=== PATIENT | female | born 1950 | race Two or more races ===

== ENCOUNTER 2018-06-08 06:25 | Day surgery (SDC) | payer MEDICARE, MEDICAID ==
--- NOTE | 2018-06-02 15:52 | Pre-Procedure Note/Attestation ---
Pre-Procedure Note/Attestation Complete Prior to Procedure Planned Procedure: right Procedure Narrative: PHACO WITH iol Indications for Procedure Pre-Operative Diagnosis: CATARACT Attestation I attest that I discussed the nature of the procedure; its benefits; risks and complications; and alternatives (and the risks and benefits of such alternatives ), prior to the procedure, with the patient (or the patient's legal fulfillment representative). I attest that, if there was a reasonable possibility of needing a blood transfusion, the patient (or the patient's legal fulfillment representative) was given the [facility] standardized written summary, pursuant to the Gaudencio Streator Blood Safety Act ([place] Health and Safety Code # 1645, as amended). I attest that I re-evaluated the patient just prior to the surgery and that there has been no change in the patient's H&P, except as documented below: Dustin Bautista MD Jun 02, 2018 15:52
--- NOTE | 2018-06-02 15:53 | Opthalmology H&P ---
Ophthalmology H&P H&P Chief Complaint: decreased vision in right eye HPI Vision Affects Ability to: read, focus/use eyes together, manage personal affairs HPI Narrative BLURRY VISION Exam Visual Acuity: OD; CF OS; 20/40 Tension: OD; 14 OS;13 Eye Exam: normal OU: external exam, palpebral fissure-width, marginal reflex distance, levator function, corneas, anterior chambers, fundus exam; findings: lens - OD; PSC OS; CORTICAL Assessment/Plan Diagnosis: (1) Posterior subcapsular age-related cataract of right eye Treatment Plan: cataract extraction w/ lens implant Goals of Treatment: improvement of vision, enhance quality of life Attestation Attestation The risks and benefits of the surgery as well as alternative procedures were explained to the patient in detail. Dustin Bautista MD Jun 02, 2018 15:53
--- NOTE | 2018-06-05 15:01 | NUR ---
[employer] translation services used to obtained medical history. Shellfish Checker: Сергей with ID #[id number].
[~2018-06-08] VITALS: Ht 162.6 cm; Wt 83.9 kg
[2018-06-08] VITALS (9 sets, daily range): BP systolic 132–149; BP diastolic 75–90
[~2018-06-08 06:25] MED LIST: Tropicamide 1% Opth 15ml Soln RIGHT EYE SCH; [UNRECOGNIZED DRUG - REMARK] PO; cholesterol pill PO
[2018-06-08] MEDS ORDERED: Maxitrol Opth Oint 3.5gm ONE (07:00)
[2018-06-08] MEDS ORDERED: Tetracaine 0.5% Opth 4ml Soln RIGHT EYE ONE (07:00)
[2018-06-08] MEDS ORDERED: Proparacaine 0.5% Opth Soln 15ml RIGHT EYE ONE (07:00)
[2018-06-08] MEDS ORDERED: Pilocarpine 1% Opth 15ml Soln ONE (07:00)
[2018-06-08] MEDS ORDERED: Dexamethasone 4mg/ml vial ONE (07:00)
[2018-06-08] MEDS ORDERED: Akten 3.5% 1ml Btl RIGHT EYE ONE (07:00)
[2018-06-08] MEDS ORDERED: Pred Forte 1% Opth Susp 1ml ONE (07:00)
[2018-06-08] MEDS: Phenylephrine 10% Opth Soln 5ml RIGHT EYE SCH ×3 (08:42→09:04)
[2018-06-08] MEDS: Cyclopentolate 1% Opth Sol 2ml RIGHT EYE SCH ×3 (08:42→09:04)
[2018-06-08] MEDS: Tobramycin Op Soln 0.3% 5ml RIGHT EYE SCH ×3 (08:43→09:04)
[2018-06-08] MEDS: Diclofenac Sod 0.1% Op Soln RIGHT EYE SCH ×3 (08:43→09:04)
[2018-06-08] MEDS: Tropicamide 1% Opth 15ml Soln RIGHT EYE SCH ×3 (08:48→09:04)
[2018-06-08] MEDS ORDERED: VITAMIN D350000 UNIT PO (08:54)
[2018-06-08] MEDS ORDERED: ATORVASTATIN CA40 MG ORAL (08:54)
[2018-06-08] MEDS ORDERED: LEVOTHYROXINE175 MCG ORAL (08:54)
[2018-06-08] MEDS ORDERED: fentaNYL 100 mcg/2 mL IV ONE (10:41)
[2018-06-08] MEDS ORDERED: Atropine Inj 1mg/10ml Syr IV PRN (11:00)
[2018-06-08] MEDS ORDERED: fentaNYL 100 mcg/2 mL IV PRN (11:00)
[2018-06-08] MEDS ORDERED: DiphenhydrAMINE 50mg/ml Inj IVP PRN (11:00)
[2018-06-08] MEDS ORDERED: LR 1000ml 1,000 ML IVLG SCH (11:00)
[2018-06-08] MEDS ORDERED: Midazolam 2mg/2ml Inj IVP PRN (11:00)
--- NOTE | 2018-06-08 11:06 | Anethesia Preoperative Eval ---
Anesthesia Pre-op PMH/ROS General Date of Evaluation: Jun 08, 2018 Time of Evaluation: 10:38 Anesthesiologist: jose ASA Score: ASA 3 Mallampati Score Class I : Soft palate, uvula, fauces, pillars visible Class II: Soft palate, uvula, fauces visible Class III: Soft palate, base of uvula visible Class IV: Only hard plate visible Mallampati Classification: Class II Surgeon: miguelina Diagnosis: posterior subcapsular cataract right eye Surgical Procedure: cataract extraction w/iol implant right eye Anesthesia History: none Social History: smoking - nonsmoker Family History: no anesthesia problems Allergies: Coded Allergies: CEPHALEXIN (Verified Allergy, Severe, "throat closes up", 06/05/18) PAROXETINE (Verified Adverse Reaction, Intermediate, confusion; restlessness, 06/05/18) Medications: see eMAR Patient NPO?: Yes Past Medical History Cardiovascular: Reports: HTN, MA Endocrine: Reports: hypothyroidism HEENT: Reports: cataract (R) Anesthesia Pre-op Phys. Exam Physician Exam Last Vital Signs Date Time Temp Pulse Resp B/P (MAP) Pulse Ox O2 Delivery O2 Flow Rate FiO2 06/08/18 08:49 98.7 65 18 135/77 96 Room Air Constitutional: NAD Neurologic: CN 2-12 intact Cardiovascular: RRR Respiratory: CTA Gastrointestinal: S/NT/ND Airway Exam Mallampati Score: Class II MO: limited Neck: flexible TMD: 2fb ROM: limited Anesthesia Pre-op A/P Studies Pre-op Studies: EKG - sinus rhythm first degree avblock, inferior mi, anterior mi Risk Assessment & Plan Assessment: asa3 Plan: mac Status Change Before Surgery: No Pre-Antibiotics Drug: Shweta Ashley MD Jun 08, 2018 11:06
[2018-06-08] MEDS ORDERED: EPINEPHrine 1mg/1ml Amp ONE (13:23)
[2018-06-08] MEDS ORDERED: Povidone-Iodine 5% opth solution ONE (13:24)
[2018-06-08] MEDS ORDERED: BSS 15ml BTL ONE (13:24)
[2018-06-08] MEDS ORDERED: BSS 500ml btl ONE (13:24)
[2018-06-08] MEDS ORDERED: Sodium Hyaluronate 14 mg/ml 0.85ml ONE (13:24)
--- NOTE | 2018-06-08 14:08 | Immediate Post-Op Evaluation ---
Immediate Post-Op Evalulation Immediate Post-Op Evalulation Procedure: cataract extraction w/iol implant right eye Date of Evaluation: Jun 08, 2018 Time of Evaluation: 11:31 IV Fluids: 500ml lr Blood Products: none Estimated Blood Loss: negligible Blood Pressure Systolic: 132 Blood Pressure Diastolic: 79 Pulse Rate: 59 Respiratory Rate: 18 O2 Sat by Pulse Oximetry: 99 Temperature (Fahrenheit): 98.7 Pain Score (1-10): 0 Nausea: No Vomiting: No Complications none Patient Status: awake, reacts, patent Hydration Status: adequate Drug: Shweta Ashley MD Jun 08, 2018 14:08
--- NOTE | 2018-06-08 14:09 | 48 Hour Post Anesthesia Eval ---
Post Anesthesia Evaluation Procedure: cataract extraction w/iol implant right eye Date of Evaluation: Jun 08, 2018 Time of Evaluation: 11:33 Blood Pressure Systolic: 137 0: 79 Pulse Rate: 62 Respiratory Rate: 18 Temperature (Fahrenheit): 98.7 O2 Sat by Pulse Oximetry: 99 Airway: patent Nausea: No Vomiting: No Pain Intensity: 0 Hydration Status: adequate Cardiopulmonary Status: stable Mental Status/LOC: patient returned to baseline Post-Anesthesia Complications: none Follow-up care needed: N/A Shweta Rob MD Jun 08, 2018 14:09
--- NOTE | 2018-06-09 13:53 | Brief Operative Note ---
Immediate Post Operative Note Operative Note Chief Complaint: blurry vision Pre-op Diagnosis: CATARACT, OD Procedure: phaco with IOL Post-op Diagnosis: Pseudophakia Post-op Diagnosis: same as pre-op Findings: consistent w/pre-op dx studies Surgeon: Lily Anesthesiologist: Lucio Gunn Anesthesia: MAC Specimen: none Complications: none Condition: stable Fluids: LR Estimated Blood Loss: none Drains: none Implant(s) used?: Yes Dustin Bautista MD Jun 09, 2018 13:53
--- NOTE | 2018-06-09 13:55 | Operative Note - PDOC ---
Operative Note Operative Note Date of Operation/Procedure: Jun 08, 2018 Chief Complaint: blurry vision Pre-op Diagnosis: CATARACT, OD Procedure: phaco with IOL Post-op Diagnosis: Pseudophakia Post-op Diagnosis: same as pre-op Operative Findings: consistent w/pre-op dx studies Surgeon: Lily Anesthesiologist: Lucio Gunn Anesthesia: MAC Specimen: none Complications: none Condition: stable Fluids: LR Estimated Blood Loss: none Drains: none Implant(s) used?: Yes Indications for Procedure cataract Description of Procedure This patient has been complaining visually significant cataract in the affected eye with the best corrected visual acuity under moderate glare conditions worse. The patient complains of difficulties with glare in performing activities of daily living and wants to manage personal affairs with comfort and accuracy and see well enough to move with safety at home and outdoors. The risks, benefits and alternatives of the procedure were discussed with the patient in the office prior to scheduling surgery. All questions from the patient were answered after the surgical procedure was explained in detail. The risks of the procedure as explained to the patient include, but are not limited to, pain, infection, bleeding, loss of vision, retinal detachment, need for further surgery, loss of lens nucleus, double vision, etc. Alternative procedures were discussed which include, to do nothing or seek a second opinion. Informed consent for this procedure was obtained from the patient. The patient was referred to a primary care physician for a cardiopulmonary clearance prior to surgery, after proper evaluation was done patient was properly scheduled for outpatient surgery. The patient was brought to the operating room where the anesthesiologist established I.V. lines and cardiac monitoring leads. Mild intravenous sedation was administered. The patient was then prepared with a 5% solution of povidone -iodine to the conjunctival fornix and lashes, and a 5% solution of povidone- iodine to the lids and periorbital skin. The patient was then draped in the usual sterile fashion. A lid speculum was then placed in the operative eye. A keratome blade was then used to create a biplanar incision into the anterior chamber. Viscoelastics was then instilled into the anterior chamber. A capsulorrhexis was then fashioned with an utrata forceps. BSS and a cannula were then used to hydrodissect and hydro delineate the lens. Paracentesis incision was made at 3 o'clock with sharp blade. The phacoemulsification unit, after being properly adjusted and tested, was then used to emulsify the nucleus. Residual cortical material was aspirated with the irrigation and aspiration unit. Healon was then instilled into the anterior chamber. The corneal wound was then enlarged to the size of the optic with the beto keratome blade. The intraocular lens was then inspected for right power and size and thought to be satisfactory. Then the lens was gently placed in the capsular bag. Positioning within the capsular bag was confirmed by direct visualization. Optic centration was accomplished with a Sinskey hook. Viscoelastics was removed from the anterior chamber using the irrigation and aspiration unit. The corneal wound was then tested for leaks and none were found. The lid speculum were then removed. Sponge and needle counts were correct. An eye patch and shield were placed over the operative eye. The patient was taken to the recovery room in stable condition. There were no complications. The patient tolerated the procedure well. The patient was then transferred to the ambulatory surgery unit in stable and satisfactory condition , was given detailed written instructions and asked to follow up in the office the next day. Dustin Bautista MD Jun 09, 2018 13:55
--- NOTE | 2018-06-10 17:11 | Cardiology Report ---
APPROVED REPORT EKG Measurement Heart [id number] Sinus rhythm with 1st degree AV block Left axis deviation Right bundle branch block Left ventricular hypertrophy with repolarization abnormality Inferior infarct, age undetermined Anterolateral infarct, age undetermined Abnormal ECG
== END 2018-06-08 12:30 | disposition home or self-care (01) ==
LOC: SUR 06:25
DX: H25.041 Posterior subcapsular polar age-related cataract, right eye (principal); E89.0 Postprocedural hypothyroidism; I10 Essential (primary) hypertension; I25.2 Old myocardial infarction; R73.03 Prediabetes; E66.9 Obesity, unspecified; Z68.32 Body mass index [BMI] 32.0-32.9, adult; Z85.3 Personal history of malignant neoplasm of breast; Z90.49 Acquired absence of other specified parts of digestive tract; Z88.1 Allergy status to other antibiotic agents; Z88.8 Allergy status to other drugs, medicaments and biological substances
CPT/HCPCS: 66984; 93005; J0171; J1100; J3010; J3370; V2632; 94003; 94150

== ENCOUNTER 2020-03-09 12:54 | Inpatient (IN) | payer MEDICARE, MEDICAID ==
[~2020-03-09] VITALS: Ht 160 cm; Wt 88.9 kg
[~2020-03-09 12:54] MED LIST changes: +ATORVASTATIN CA40 MG ORAL; +LEVOTHYROXINE175 MCG ORAL; -Tropicamide 1% Opth 15ml Soln RIGHT EYE SCH; +VITAMIN D350000 UNIT PO
[2020-03-09 16:20] VITALS: BP 146/88
[2020-03-09] MEDS ORDERED: LISINOPRIL20 MG ORAL (16:48)
[2020-03-09 20:00] VITALS: BP 160/75
[2020-03-09] MEDS ORDERED: Zolpidem 5mg tab ORAL PRN (20:00)
[2020-03-09] MEDS: Atorvastatin 20mg tab ORAL SCH (20:49)
[2020-03-09] MEDS: Heparin 5000 units/ml inj SUBQ SCH (20:52)
--- NOTE | 2020-03-09 21:03 | History & Physical ---
History and Physical History & Physicial Job # Maico Dang MD Mar 09, 2020 21:03
[2020-03-10] VITALS: BP 135/69
[2020-03-10 04:00] VITALS: BP 131/78
[2020-03-10 06:48] LABS: BASOPHILS % (AUTO) 0.9 % (0.0-2.0); HEMATOCRIT 43.6 % (37.0-47.0); HEMOGLOBIN 14.4 G/DL (12.0-16.0); LYMPHOCYTES % (AUTO) 30.3 % (20.0-45.0); MEAN CORPUSCULAR VOLUME 93 FL (80-99); MONOCYTES % (AUTO) 10.4 % (1.0-10.0); NEUTROPHILS % (AUTO) 53.4 % (45.0-75.0); PLATELET COUNT 190 K/UL (150-450); RED BLOOD COUNT 4.67 M/UL (4.20-5.40); RED CELL DISTRIBUTION WIDTH 12.7 % (11.6-14.8); WHITE BLOOD COUNT 7.3 K/UL (4.8-10.8)
[2020-03-10 07:29] LABS: ALANINE AMINOTRANSFERASE 38 U/L (12-78); ALBUMIN 3.4 G/DL (3.4-5.0); ALBUMIN/GLOBULIN RATIO 0.9 (1.0-2.7); ALKALINE PHOSPHATASE 60 U/L (46-116); ANION GAP 7 mmol/L (5-15); ASPARTATE AMINO TRANSFERASE 34 U/L (15-37); BILIRUBIN,TOTAL 1.2 MG/DL (0.2-1.0); BLOOD UREA NITROGEN 13 mg/dL (7-18); CALCIUM 8.5 MG/DL (8.5-10.1); CARBON DIOXIDE 29 MMOL/L (21-32); CHLORIDE 105 MMOL/L (98-107); CHOLESTEROL 184 MG/DL (< 200); CREATININE 0.7 MG/DL (0.55-1.30); HDL CHOLESTEROL 50 MG/DL (40-60); POTASSIUM 3.8 MMOL/L (3.5-5.1); SODIUM 141 MMOL/L (136-145); TRIGLYCERIDES 99 MG/DL (30-150)
[2020-03-10 07:30] LABS: BILIRUBIN,DIRECT 0.2 MG/DL (0.0-0.3)
[2020-03-10 07:40] LABS: PHOSPHORUS 3.7 MG/DL (2.5-4.9)
[2020-03-10 08:00] VITALS: BP 149/89
--- NOTE | 2020-03-10 08:59 | History and Physical Report ---
DATE OF ADMISSION: 03/09/2020 CHIEF COMPLAINT: Syncopal episode. HISTORY OF PRESENT ILLNESS: This is a 69-year-old very delightful female with past medical history significant for hypertension, dyslipidemia, right breast cancer, status post lumpectomy followed by chemotherapy and radiation therapy in 2010, history of macular degeneration of the eyes status post monthly injection, cholecystectomy, prediabetic, partial thyroidectomy due to the benign lump, presently on Synthroid hormone replacement, who presented to the [facility] Emergency Department after having syncopal episode. The syncopal episode was around 8 a.m. She was noted felt lightheaded and had a syncopal episode, hitting the right side of her head, and noted that she was out of for a few seconds before coming back to conscious. She noted the right-sided headache with nausea, but no vomiting after hitting her head. No other acute complaint was presented. Onset of graduation timely, [id number] pain. Shortly after initial evaluation in the emergency department, the patient was transferred to the [facility] for further evaluation. Subsequently, the patient was admitted to the hospital with syncope, possible due to dehydration versus cardiac arrhythmia. PAST MEDICAL HISTORY/PAST SURGICAL HISTORY: As above. History of prediabetic, right breast cancer, status post lumpectomy and followed by chemotherapy and radiation therapy in 2010, macular degeneration of eyes on monthly injection, cholecystectomy, history of thyroidectomy due to the benign lump, and Synthroid for hypothyroidism. MEDICATIONS: At home, Synthroid, atorvastatin 40 mg daily, vitamin D3 50,000 weekly, levothyroxine 150 mcg every morning, and lisinopril 20 mg daily. ALLERGIES: To Keflex as well as Taxol with anaphylaxis and facial edema. SOCIAL HISTORY: No smoking, alcohol, or drugs. Very supportive family. The patient is mostly at home, [facility]. FAMILY HISTORY: Uterine cancer, breast cancer runs in the family. Father had history of coronary artery disease with myocardial infarction and with heart disease. REVIEW OF SYSTEMS: Mostly as above. Denies any dysuria, frequency, or hematuria. Denies any hemoptysis or hematochezia. Denies any bright red blood per rectum. Denies any loss of consciousness before this episode. Denies any fall or head trauma in the past; however, at this time, she had syncope with striking her head. She denies any double vision. She denies any bowel or urine incontinence. She complains of syncope, lightheadedness, and headache. No seizure activity. PHYSICAL EXAMINATION: VITAL SIGNS: In the ER, blood pressure 177/76, pulse of 69, respirations 15, and temperature 98.2. GENERAL: The patient is awake, responsive, and in no acute distress. HEAD AND NECK: Pupils equal and reactive to light. Extraocular movements intact. Neck was supple. No JVD. LUNGS: Good air entry. No wheezing or rales. HEART: S1, S2. Regular rhythm. No murmur or gallop. ABDOMEN: Soft, nondistended, nontender, mildly obese. EXTREMITIES: No cyanosis, clubbing, or edema. NEUROLOGIC: Cranial nerves II through XII grossly intact. Motor is 5/5 in all extremities. Gait is intact. RECTAL: Refused and deferred. GENITOURINARY: Refused and deferred. PSYCHIATRIC: Mood and affect is intact. LABORATORY AND DIAGNOSTIC DATA: On admission from [place], INR is 1.1. WBC of 8.3, hemoglobin of 14, hematocrit 45, platelet is 229,000. The patient has alkaline phosphatase 66, calcium is 8.9, and glucose is 121. Sodium 137, potassium 3.9, chloride 100, bicarb is 26, BUN 15, creatinine 0.44, GFR is 104, magnesium 2.0. Troponin less than 0.02, ALT of 31, total bilirubin of 1.2, direct bilirubin of 0.2, AST of 32. Urinalysis, positive for leukocyte, nitrite negative, protein negative, glucose level is negative, the patient has 3-5 wbc, no bacteria. The patient has had a chest x-ray; no infiltrates, pneumothorax, effusion, or edema. EKG, normal sinus rhythm, rate of 60, right bundle-branch block, QTc , first-degree AV block, no acute ST elevation was identified. CT of the head, ventricles and sulci are unremarkable. There is no intracranial bleeding or acute infarction. A small scalp hematoma was seen in the right parieto-occipital region. No acute abnormal density or mass effect. Bony structures are within the normal limits. Orbits and facial soft tissue are unremarkable. Mucoperiosteal thickening was seen in the right ethmoidal sinuses. Impression is no intracranial bleeding and chronic ethmoidal sinusitis. ASSESSMENT: 1. Syncope. 2. Blunt head trauma as a result of fall with right scalp hematoma. 3. Hypertension. 4. History of left breast cancer, status post lumpectomy followed by the chemotherapy and radiation therapy. 5. Morbid obesity. 6. Hypothyroidism. 7. Dyslipidemia. PLAN: Admit the patient to monitored unit. We will follow up with Dr. Guthrie from Pulmonary/Critical Care and Dr. Kennedy from Cardiology/Electrophysiology. Follow up with echocardiogram and carotid duplex. Discussed with daughters extensively. Code status is full code. DVT prophylaxis, heparin subcu. Maico Dang M.D. DR: Rohan JOB#: [id number] CC:
[2020-03-10] MEDS: Lisinopril 20mg tab ORAL SCH (09:08)
[2020-03-10] MEDS: Heparin 5000 units/ml inj SUBQ SCH ×2 (09:09→21:00)
[2020-03-10 12:00] VITALS: BP 122/77
[2020-03-10] MEDS: Tylenol #3 tab (300mg/30mg) ORAL PRN ×2 (12:00→19:59)
--- NOTE | 2020-03-10 12:34 | Cardiac Electrophysiology PN ---
Subjective Subjective Syncope with trifascicular block including LBBB and First degree AV block and LAD off any AVN asif Likely need pacer for intermittent CHB Dictated [id number] Objective Last 24 Hour Vital Signs Date Time Temp Pulse Resp B/P (MAP) Pulse Ox O2 Delivery O2 Flow Rate FiO2 03/10/20 09:08 149/89 03/10/20 09:00 Room Air 03/10/20 08:00 97.7 72 20 149/89 (109) 98 03/10/20 08:00 61 03/10/20 04:21 97.9 03/10/20 04:00 82 03/10/20 04:00 97.9 68 19 131/78 (95) 96 03/10/20 00:00 98.7 63 17 135/69 (91) 94 03/10/20 00:00 65 03/09/20 21:00 Room Air 03/09/20 20:00 65 03/09/20 20:00 67 65 70 03/09/20 20:00 97.9 67 20 160/75 (103) 100 03/09/20 16:20 Room Air 03/09/20 16:20 99.5 70 20 146/88 (107) 95 Laboratory Tests Test 03/10/20 06:08 White Blood Count 7.3 K/UL (4.8-10.8) Red Blood Count 4.67 M/UL (4.20-5.40) Hemoglobin 14.4 G/DL (12.0-16.0) Hematocrit 43.6 % (37.0-47.0) Mean Corpuscular Volume 93 FL (80-99) Mean Corpuscular Hemoglobin 30.8 PG (27.0-31.0) Mean Corpuscular Hemoglobin Concent 33.0 G/DL (32.0-36.0) Red Cell Distribution Width 12.7 % (11.6-14.8) Platelet Count 190 K/UL (150-450) Mean Platelet Volume 8.6 FL (6.5-10.1) Neutrophils (%) (Auto) 53.4 % (45.0-75.0) Lymphocytes (%) (Auto) 30.3 % (20.0-45.0) Monocytes (%) (Auto) 10.4 % (1.0-10.0) H Eosinophils (%) (Auto) 5.0 % (0.0-3.0) H Basophils (%) (Auto) 0.9 % (0.0-2.0) Sodium Level 141 MMOL/L (136-145) Potassium Level 3.8 MMOL/L (3.5-5.1) Chloride Level 105 MMOL/L (98-107) Carbon Dioxide Level 29 MMOL/L (21-32) Anion Gap 7 mmol/L (5-15) Blood Urea Nitrogen 13 mg/dL (7-18) Creatinine 0.7 MG/DL (0.55-1.30) Estimat Glomerular Filtration Rate > 60 mL/min (>60) Glucose Level 103 MG/DL (74-106) Calcium Level 8.5 MG/DL (8.5-10.1) Phosphorus Level 3.7 MG/DL (2.5-4.9) Magnesium Level 2.1 MG/DL (1.8-2.4) Total Bilirubin 1.2 MG/DL (0.2-1.0) H Direct Bilirubin 0.2 MG/DL (0.0-0.3) Aspartate Amino Transf (AST/SGOT) 34 U/L (15-37) Alanine Aminotransferase (ALT/SGPT) 38 U/L (12-78) Alkaline Phosphatase 60 U/L (46-116) Troponin I 0.000 ng/mL (0.000-0.056) Total Protein 7.3 G/DL (6.4-8.2) Albumin 3.4 G/DL (3.4-5.0) Globulin 3.9 g/dL Albumin/Globulin Ratio 0.9 (1.0-2.7) L Triglycerides Level 99 MG/DL (30-150) Cholesterol Level 184 MG/DL (< 200) LDL Cholesterol 121 mg/dL (<100) H HDL Cholesterol 50 MG/DL (40-60) Cholesterol/HDL Ratio 3.7 (3.3-4.4) Thyroid Stimulating Hormone (TSH) 0.155 uiU/mL (0.358-3.740) Free Thyroxine 1.59 NG/DL (0.76-1.46) H Free Triiodothyronine 2.4 pg/mL (2.3-4.2) Hollis Kennedy MD Mar 10, 2020 12:34
--- NOTE | 2020-03-10 14:13 | Internal Med Progress Note ---
Subjective Physician Name Maico Dang Attending Physician Maico Dang MD Current Medications Medications (Trade) Dose Ordered Sig/Alex Route PRN Reason Start Time Stop Time Status Last Admin Dose Admin Acetaminophen (Tylenol) 650 mg Q6H PRN ORAL PAIN 1-3/HEADACHE 03/09/20 20:00 04/08/20 19:59 03/10/20 03:51 Acetaminophen/ Codeine Phosphate (Tylenol #3) 1 tab Q6H PRN ORAL Pain Scale (6-10) 03/09/20 20:00 03/16/20 19:59 03/10/20 12:00 Atorvastatin Calcium (Lipitor) 40 mg BEDTIME ORAL 03/09/20 21:00 06/07/20 20:59 03/09/20 20:49 Heparin Sodium (Porcine) (Heparin 5000 units/ml) 5,000 units EVERY 12 HOURS SUBQ 03/09/20 21:00 04/23/20 20:59 03/10/20 09:09 Levothyroxine Sodium (Synthroid) 150 mcg DAILY@0630 ORAL 03/10/20 06:30 04/09/20 06:29 03/10/20 06:20 Lisinopril (PriniviL) 20 mg DAILY ORAL 03/10/20 09:00 04/09/20 08:59 03/10/20 09:08 Ondansetron HCl (Zofran) 4 mg Q4H PRN IVP Nausea & Vomiting 03/09/20 20:00 04/08/20 19:59 Zolpidem Tartrate (Ambien) 5 mg HSPRN PRN ORAL Insomnia 03/09/20 20:00 03/16/20 19:59 Allergies: Coded Allergies: CEPHALEXIN (Verified Allergy, Severe, "throat closes up", 06/05/18) PAROXETINE (Verified Adverse Reaction, Intermediate, confusion; restlessness, 06/05/18) Subjective awake, alert, responsive, denies any chest pain or shortness of breath, denies any dizziness, decreased headache. Objective Last Vital Signs Date Time Temp Pulse Resp B/P (MAP) Pulse Ox O2 Delivery O2 Flow Rate FiO2 03/10/20 12:00 62 03/10/20 12:00 97.7 20 122/77 (92) 100 03/10/20 09:00 Room Air Laboratory Tests Test 03/10/20 06:08 White Blood Count 7.3 K/UL (4.8-10.8) Red Blood Count 4.67 M/UL (4.20-5.40) Hemoglobin 14.4 G/DL (12.0-16.0) Hematocrit 43.6 % (37.0-47.0) Mean Corpuscular Volume 93 FL (80-99) Mean Corpuscular Hemoglobin 30.8 PG (27.0-31.0) Mean Corpuscular Hemoglobin Concent 33.0 G/DL (32.0-36.0) Red Cell Distribution Width 12.7 % (11.6-14.8) Platelet Count 190 K/UL (150-450) Mean Platelet Volume 8.6 FL (6.5-10.1) Neutrophils (%) (Auto) 53.4 % (45.0-75.0) Lymphocytes (%) (Auto) 30.3 % (20.0-45.0) Monocytes (%) (Auto) 10.4 % (1.0-10.0) H Eosinophils (%) (Auto) 5.0 % (0.0-3.0) H Basophils (%) (Auto) 0.9 % (0.0-2.0) Sodium Level 141 MMOL/L (136-145) Potassium Level 3.8 MMOL/L (3.5-5.1) Chloride Level 105 MMOL/L (98-107) Carbon Dioxide Level 29 MMOL/L (21-32) Anion Gap 7 mmol/L (5-15) Blood Urea Nitrogen 13 mg/dL (7-18) Creatinine 0.7 MG/DL (0.55-1.30) Estimat Glomerular Filtration Rate > 60 mL/min (>60) Glucose Level 103 MG/DL (74-106) Calcium Level 8.5 MG/DL (8.5-10.1) Phosphorus Level 3.7 MG/DL (2.5-4.9) Magnesium Level 2.1 MG/DL (1.8-2.4) Total Bilirubin 1.2 MG/DL (0.2-1.0) H Direct Bilirubin 0.2 MG/DL (0.0-0.3) Aspartate Amino Transf (AST/SGOT) 34 U/L (15-37) Alanine Aminotransferase (ALT/SGPT) 38 U/L (12-78) Alkaline Phosphatase 60 U/L (46-116) Troponin I 0.000 ng/mL (0.000-0.056) Total Protein 7.3 G/DL (6.4-8.2) Albumin 3.4 G/DL (3.4-5.0) Globulin 3.9 g/dL Albumin/Globulin Ratio 0.9 (1.0-2.7) L Triglycerides Level 99 MG/DL (30-150) Cholesterol Level 184 MG/DL (< 200) LDL Cholesterol 121 mg/dL (<100) H HDL Cholesterol 50 MG/DL (40-60) Cholesterol/HDL Ratio 3.7 (3.3-4.4) Thyroid Stimulating Hormone (TSH) 0.155 uiU/mL (0.358-3.740) Free Thyroxine 1.59 NG/DL (0.76-1.46) H Free Triiodothyronine 2.4 pg/mL (2.3-4.2) Objective General: No acute distress, awake and alert HEENT: NCAT, sclera anicteric, PERRL, EOMI. Neck: Supple, no significant jugular venous distention, Lungs: Good inspiratory effort, clear to auscultation bilaterally, no Wheeze or Rales. Heart: Regular rate and rhythm, normal S1/S2, no murmurs Abdomen: soft, nontender, nondistended. Normoactive bowel sounds, Obesity. / Rectal: Refused and deferred. Extremities: No Cyanosis , clubbing or edema. Neuro: A&O x 3, Able to move all extremities Skin: warm, no rashes or lesions Psych: Normal mood and affect Assessment/Plan Assessment/Plan 1. Syncope possible due to cardiac arrhythmias Vs. heart block. 2. Blunt head trauma as a result of fall with right scalp hematoma. 3. Hypertension. 4. History of left breast cancer, status post lumpectomy followed by the chemotherapy and radiation therapy. 5. Morbid obesity. 6. Hypothyroidism. 7. Dyslipidemia. PLAN: In monitored unit. Dr. Guthrie from Pulmonary/Critical Care Dr. Kennedy from Cardiology/Electrophysiology. Follow up with echocardiogram and carotid duplex. Code status: full code. DVT prophylaxis: heparin subcu. Maico Dang MD Mar 10, 2020 14:13
--- NOTE | 2020-03-10 14:26 | Consultation ---
History of Present Illness General Date patient seen: Mar 10, 2020 Present Illness HPI 69 year old female with hx of Pre-diabetes, s/p breast CA resection, morbid obesity presented to [facility] with CC of syncopal episode. Patient doesn't recall having any seizures, nor she bit her tongue. CT of head at [place] was negative for any acute changes. She is transferred to [facility] telemetry for further management. Allergies: Coded Allergies: CEPHALEXIN (Verified Allergy, Severe, "throat closes up", 06/05/18) PAROXETINE (Verified Adverse Reaction, Intermediate, confusion; restlessness, 06/05/18) Medication History Scheduled Atorvastatin Calcium* (Atorvastatin Calcium*), 40 MG ORAL BEDTIME, (Reported) Cholecalciferol (Vitamin D3) (Vitamin D3), 50,000 UNIT PO ONCE A WEEK, (Reported) Levothyroxine Sodium (Synthroid*), 150 MCG ORAL DAILY, (Reported) Lisinopril (Lisinopril*), 20 MG ORAL DAILY, (Reported) Patient History Healthcare decision maker Resuscitation status Advanced Directive on File Past Medical/Surgical History Past Medical/Surgical History: (1) History of partial thyroidectomy (2) History of cholecystectomy (3) Pre-diabetes (4) Breast cancer (5) Syncope Review of Systems All Other Systems: negative except mentioned in HPI Physical Exam General Appearance: WD/WN, overweight Lines, tubes and drains: peripheral HEENT: normocephalic, atraumatic, anicteric Neck: non-tender, normal alignment, supple Respiratory/Chest: chest wall non-tender, lungs clear, normal breath sounds Cardiovascular/Chest: normal peripheral pulses Genitourinary/Rectal: normal genital exam Extremities: normal range of motion, non-tender Last 24 Hour Vital Signs Date Time Temp Pulse Resp B/P (MAP) Pulse Ox O2 Delivery O2 Flow Rate FiO2 03/10/20 12:00 62 03/10/20 12:00 97.7 62 20 122/77 (92) 100 03/10/20 09:08 149/89 03/10/20 09:00 Room Air 03/10/20 08:00 97.7 72 20 149/89 (109) 98 03/10/20 08:00 64 62 66 03/10/20 08:00 61 03/10/20 04:21 97.9 03/10/20 04:00 82 03/10/20 04:00 97.9 68 19 131/78 (95) 96 03/10/20 00:00 98.7 63 17 135/69 (91) 94 03/10/20 00:00 65 03/09/20 21:00 Room Air 03/09/20 20:00 65 03/09/20 20:00 67 65 70 03/09/20 20:00 97.9 67 20 160/75 (103) 100 03/09/20 16:20 Room Air 03/09/20 16:20 99.5 70 20 146/88 (107) 95 Laboratory Tests Test 03/10/20 06:08 White Blood Count 7.3 K/UL (4.8-10.8) Red Blood Count 4.67 M/UL (4.20-5.40) Hemoglobin 14.4 G/DL (12.0-16.0) Hematocrit 43.6 % (37.0-47.0) Mean Corpuscular Volume 93 FL (80-99) Mean Corpuscular Hemoglobin 30.8 PG (27.0-31.0) Mean Corpuscular Hemoglobin Concent 33.0 G/DL (32.0-36.0) Red Cell Distribution Width 12.7 % (11.6-14.8) Platelet Count 190 K/UL (150-450) Mean Platelet Volume 8.6 FL (6.5-10.1) Neutrophils (%) (Auto) 53.4 % (45.0-75.0) Lymphocytes (%) (Auto) 30.3 % (20.0-45.0) Monocytes (%) (Auto) 10.4 % (1.0-10.0) H Eosinophils (%) (Auto) 5.0 % (0.0-3.0) H Basophils (%) (Auto) 0.9 % (0.0-2.0) Sodium Level 141 MMOL/L (136-145) Potassium Level 3.8 MMOL/L (3.5-5.1) Chloride Level 105 MMOL/L (98-107) Carbon Dioxide Level 29 MMOL/L (21-32) Anion Gap 7 mmol/L (5-15) Blood Urea Nitrogen 13 mg/dL (7-18) Creatinine 0.7 MG/DL (0.55-1.30) Estimat Glomerular Filtration Rate > 60 mL/min (>60) Glucose Level 103 MG/DL (74-106) Calcium Level 8.5 MG/DL (8.5-10.1) Phosphorus Level 3.7 MG/DL (2.5-4.9) Magnesium Level 2.1 MG/DL (1.8-2.4) Total Bilirubin 1.2 MG/DL (0.2-1.0) H Direct Bilirubin 0.2 MG/DL (0.0-0.3) Aspartate Amino Transf (AST/SGOT) 34 U/L (15-37) Alanine Aminotransferase (ALT/SGPT) 38 U/L (12-78) Alkaline Phosphatase 60 U/L (46-116) Troponin I 0.000 ng/mL (0.000-0.056) Total Protein 7.3 G/DL (6.4-8.2) Albumin 3.4 G/DL (3.4-5.0) Globulin 3.9 g/dL Albumin/Globulin Ratio 0.9 (1.0-2.7) L Triglycerides Level 99 MG/DL (30-150) Cholesterol Level 184 MG/DL (< 200) LDL Cholesterol 121 mg/dL (<100) H HDL Cholesterol 50 MG/DL (40-60) Cholesterol/HDL Ratio 3.7 (3.3-4.4) Thyroid Stimulating Hormone (TSH) 0.155 uiU/mL (0.358-3.740) Free Thyroxine 1.59 NG/DL (0.76-1.46) H Free Triiodothyronine 2.4 pg/mL (2.3-4.2) Height (Feet): 5 Height (Inches): 4.00 Weight (Pounds): 195 Medications Current Medications Medications (Trade) Dose Ordered Sig/Alex Route PRN Reason Start Time Stop Time Status Last Admin Dose Admin Acetaminophen (Tylenol) 650 mg Q6H PRN ORAL PAIN 1-3/HEADACHE 03/09/20 20:00 04/08/20 19:59 03/10/20 03:51 Acetaminophen/ Codeine Phosphate (Tylenol #3) 1 tab Q6H PRN ORAL Pain Scale (6-10) 03/09/20 20:00 03/16/20 19:59 03/10/20 12:00 Atorvastatin Calcium (Lipitor) 40 mg BEDTIME ORAL 03/09/20 21:00 06/07/20 20:59 03/09/20 20:49 Heparin Sodium (Porcine) (Heparin 5000 units/ml) 5,000 units EVERY 12 HOURS SUBQ 03/09/20 21:00 04/23/20 20:59 03/10/20 09:09 Levothyroxine Sodium (Synthroid) 150 mcg DAILY@0630 ORAL 03/10/20 06:30 04/09/20 06:29 03/10/20 06:20 Lisinopril (PriniviL) 20 mg DAILY ORAL 03/10/20 09:00 04/09/20 08:59 03/10/20 09:08 Ondansetron HCl (Zofran) 4 mg Q4H PRN IVP Nausea & Vomiting 03/09/20 20:00 04/08/20 19:59 Zolpidem Tartrate (Ambien) 5 mg HSPRN PRN ORAL Insomnia 03/09/20 20:00 03/16/20 19:59 Assessment/Plan Problem List: (1) Syncope ICD Codes: R55 - Syncope and collapse SNOMED: 423562114 (2) Breast cancer ICD Codes: C50.919 - Malignant neoplasm of unspecified site of unspecified female breast SNOMED: 663295432 (3) Pre-diabetes ICD Codes: R73.03 - Prediabetes SNOMED: 961402480 (4) History of cholecystectomy ICD Codes: Z90.49 - Acquired absence of other specified parts of digestive tract SNOMED: 98818994, 879482296 (5) History of partial thyroidectomy ICD Codes: Z90.09 - Acquired absence of other part of head and neck SNOMED: 97698000, [id number] Assessment/Plan: 2D echo carotid artery duplex cardiology to see keep in telemetry f/u Blood sugar. dvt prophylaxis Danette Guthrie MD Mar 10, 2020 14:26
--- NOTE | 2020-03-10 15:15 | Consultation ---
DATE OF CONSULTATION: 03/10/2020 CARDIOLOGY CONSULTATION CONSULTING PHYSICIAN: Hollis Kennedy MD REFERRING PHYSICIAN: Maico Dang MD REASON FOR CONSULTATION: Syncopal episodes. HISTORY OF PRESENT ILLNESS: Patient is a very pleasant 69-year-old lady with history of hypertension, hyperlipidemia, history of right breast cancer status post lumpectomy followed by chemotherapy and radiation in 2010 as well as history of macular degeneration on a monthly injection as well as cholecystectomy, and history of partial thyroidectomy on Synthroid replacement, presented to [facility] after she had a syncopal episode that happened at 8 o'clock in the morning. She felt lightheaded and then she had a syncopal episode in the right side of her head. The patient was out for few seconds but gotten back to consciousness. Patient had right-sided headache as well as nausea and came to the emergency room, underwent a CT of the brain that showed no evidence of intracranial bleed. Cardiology consultation was obtained for further evaluation and management. Her echocardiogram showed ejection fraction of 55 to 60% and her EKG showed sinus rhythm with first-degree AV block as well as left anterior fascicular block and left bundle-branch block morphology. REVIEW OF SYSTEMS: Negative other than what was mentioned in the history of present illness. PAST MEDICAL HISTORY: As mentioned above. FAMILY HISTORY: Noncontributory. SOCIAL HISTORY: She does not smoke or drink alcohol. Has very supportive family. MEDICATIONS: Per reconciliation. Does not include any AV preston blocking agents and only on Synthroid, Lipitor, lisinopril, and vitamin. SOCIAL HISTORY: She lives with family. Does not smoke or drink alcohol. PHYSICAL EXAMINATION: VITAL SIGNS: Show blood pressure of 149/89, pulse is 60, respirations 18, and she is afebrile. HEAD AND NECK: Showed no JVD or carotid bruits. LUNGS: Clear. CARDIOVASCULAR: Shows regular S1 and S2 with no gallop or murmur. ABDOMEN: Soft and nontender. EXTREMITIES: No pitting edema. LABORATORY AND DIAGNOSTIC DATA: Her labs show white count 7.2, hemoglobin 14.5, hematocrit 43.6, platelet count of 190. Sodium 142, potassium 3.8, BUN of 13, creatinine of 0.7, glucose of 103. First troponin is negative. ASSESSMENT AND PLAN: 1. Syncopal episode of sudden onset. 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 We will watch the patient on telemetry, but likely she would need a permanent pacemaker placement. 2. Hypertension. Continue lisinopril 20 mg daily. 3. Hyperlipidemia, on Lipitor. 4. Hypothyroidism, on Synthroid. Thank you very much, Dr. Dang, for allowing me to participate in the care of this patient. Please do not hesitate to contact me for any questions regarding my evaluation. Hollis Kennedy M.D. DR: PERLA JOB#: [id number] CC:
[2020-03-10 16:00] VITALS: BP 129/68
--- NOTE | 2020-03-10 17:22 | Diagnostic Imaging Report ---
Indication: Syncope Technique: Grayscale and duplex images of the bilateral extracranial vertebral and carotid arteries Comparison: none Findings: On the right, grayscale and duplex images demonstrate osteoporotic plaquing resulting in less than 50% diameter narrowing. On the left, peak systolic velocity in the internal carotid artery which is 130 cm/s, and the internal common carotid artery velocity ratio is 2.1. Heart and cough after strut plaque is seen in this area. Patent bilateral vertebral arteries, antegrade flow Impression: Flow velocity elevation in the left internal carotid artery with evidence of calcified plaquing. By velocity criteria, degree of stenosis is 50-69% diameter. Less than 50% diameter stenosis on the right All stenosis was measured based on the NASCET criteria. Velocity criteria are extrapolated from diameter data as defined by the Society of radiologists in ultrasound consensus conference. Radiology 2003:229; 340-346
[2020-03-10 20:00] VITALS: BP 122/70
[2020-03-10] MEDS: Atorvastatin 20mg tab ORAL SCH (21:19)
[2020-03-11] VITALS (7 sets, daily range): BP systolic 110–142; BP diastolic 58–84
[2020-03-11] MEDS: Tylenol #3 tab (300mg/30mg) ORAL PRN ×3 (04:06→18:17)
[2020-03-11] MEDS: Lisinopril 20mg tab ORAL SCH (09:06)
[2020-03-11] MEDS: Heparin 5000 units/ml inj SUBQ SCH ×2 (09:07→20:49)
--- NOTE | 2020-03-11 09:37 | Pulmonology Progress Note ---
Subjective ROS Limited/Unobtainable: No Constitutional: Reports: no symptoms HEENT: Repors: no symptoms Respiratory: Reports: no symptoms Allergies: Coded Allergies: CEPHALEXIN (Verified Allergy, Severe, "throat closes up", 06/05/18) PAROXETINE (Verified Adverse Reaction, Intermediate, confusion; restlessness, 06/05/18) Objective Last 24 Hour Vital Signs Date Time Temp Pulse Resp B/P (MAP) Pulse Ox O2 Delivery O2 Flow Rate FiO2 03/11/20 09:06 123/71 03/11/20 08:00 98.1 60 20 123/71 (88) 97 03/11/20 04:36 96.9 03/11/20 04:00 97.6 60 20 110/58 (75) 98 03/11/20 04:00 97.6 20 03/11/20 04:00 59 03/11/20 00:00 98.1 64 18 115/68 (84) 95 03/11/20 00:00 98.1 18 03/10/20 21:00 Room Air 03/10/20 20:29 96.9 03/10/20 20:00 61 65 62 03/10/20 20:00 96.9 59 16 122/70 (87) 96 03/10/20 20:00 96.9 16 03/10/20 20:00 61 03/10/20 16:00 60 03/10/20 16:00 97.7 61 20 129/68 (88) 98 03/10/20 12:00 62 03/10/20 12:00 97.7 62 20 122/77 (92) 100 Intake and Output 03/10/20 03/11/20 19:00 07:00 Intake Total 324 ml 480 ml Balance 324 ml 480 ml Intake Oral 324 ml 480 ml # Voids 3 3 General Appearance: WD/WN, no acute distress HEENT: normocephalic Respiratory: chest wall non-tender, lungs clear, normal breath sounds Cardiovascular: normal peripheral pulses, normal rate, regular rhythm Abdomen: normal bowel sounds, soft, non tender, no organomegaly Genitourinary: normal external genitalia Skin: no rash Neurologic: drawing in hand II-XII grossly normal Laboratory Tests 03/10/20 14:15: Troponin I 0.001 03/10/20 19:05: Troponin I 0.000 03/11/20 03:05: Troponin I 0.000 Current Medications Medications (Trade) Dose Ordered Sig/Alex Route PRN Reason Start Time Stop Time Status Last Admin Dose Admin Acetaminophen (Tylenol) 650 mg Q6H PRN ORAL PAIN 1-3/HEADACHE 03/09/20 20:00 04/08/20 19:59 03/10/20 16:28 Acetaminophen/ Codeine Phosphate (Tylenol #3) 1 tab Q6H PRN ORAL Pain Scale (6-10) 03/09/20 20:00 03/16/20 19:59 03/11/20 04:06 Atorvastatin Calcium (Lipitor) 40 mg BEDTIME ORAL 03/09/20 21:00 06/07/20 20:59 03/10/20 21:19 Heparin Sodium (Porcine) (Heparin 5000 units/ml) 5,000 units EVERY 12 HOURS SUBQ 03/09/20 21:00 04/23/20 20:59 03/11/20 09:07 Levothyroxine Sodium (Synthroid) 150 mcg DAILY@0630 ORAL 03/10/20 06:30 04/09/20 06:29 03/11/20 06:39 Lisinopril (PriniviL) 20 mg DAILY ORAL 03/10/20 09:00 04/09/20 08:59 03/11/20 09:06 Ondansetron HCl (Zofran) 4 mg Q4H PRN IVP Nausea & Vomiting 03/09/20 20:00 04/08/20 19:59 Zolpidem Tartrate (Ambien) 5 mg HSPRN PRN ORAL Insomnia 03/09/20 20:00 03/16/20 19:59 Assessment/Plan Problems: (1) Syncope (2) Breast cancer (3) Pre-diabetes (4) History of cholecystectomy (5) History of partial thyroidectomy Assessment/Plan asymptomatic, wants to go home 2D echo reviewed: EF 55%, grade 1 diastolic dysfunction carotid artery duplex was negative keep in telemetry f/u Blood sugar. dvt prophylaxis Danette Guthrie MD Mar 11, 2020 09:37
--- NOTE | 2020-03-11 13:30 | Cardiac Electrophysiology PN ---
Assessment/Plan Assessment/Plan 1. Syncopal episode of sudden onset. Carotid US no significant stenosis. 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 We will watch the patient on telemetry, but likely she would need a permanent pacemaker placement. 2. Hypertension. Continue lisinopril 20 mg daily. 3. Hyperlipidemia, on Lipitor. 4. Hypothyroidism, on Synthroid. SATURNINO RN Subjective Subjective No recurrence of Syncope. However has trifascicular block including LBBB and First degree AV block and LAD off any AVN asif Likely need pacer for intermittent CHB Objective Last 24 Hour Vital Signs Date Time Temp Pulse Resp B/P (MAP) Pulse Ox O2 Delivery O2 Flow Rate FiO2 03/11/20 12:00 65 03/11/20 12:00 98.1 18 03/11/20 11:43 98.1 60 18 125/69 (87) 98 03/11/20 09:06 123/71 03/11/20 09:00 Room Air 03/11/20 08:00 61 60 59 03/11/20 08:00 59 03/11/20 08:00 98.1 20 03/11/20 08:00 98.1 60 20 123/71 (88) 97 03/11/20 04:36 96.9 03/11/20 04:00 97.6 60 20 110/58 (75) 98 03/11/20 04:00 97.6 20 03/11/20 04:00 59 03/11/20 00:00 98.1 64 18 115/68 (84) 95 03/11/20 00:00 98.1 18 03/10/20 21:00 Room Air 03/10/20 20:29 96.9 03/10/20 20:00 61 65 62 03/10/20 20:00 96.9 59 16 122/70 (87) 96 03/10/20 20:00 96.9 16 03/10/20 20:00 61 03/10/20 16:00 60 03/10/20 16:00 97.7 61 20 129/68 (88) 98 Intake and Output 03/10/20 03/11/20 19:00 07:00 Intake Total 324 ml 480 ml Balance 324 ml 480 ml Intake Oral 324 ml 480 ml # Voids 3 3 Laboratory Tests Test 03/10/20 14:15 03/10/20 19:05 03/11/20 03:05 Troponin I 0.001 ng/mL (0.000-0.056) 0.000 ng/mL (0.000-0.056) 0.000 ng/mL (0.000-0.056) Objective HEAD AND NECK: Showed no JVD or carotid bruits. LUNGS: Clear. CARDIOVASCULAR: Shows regular S1 and S2 with no gallop or murmur. ABDOMEN: Soft and nontender. EXTREMITIES: No pitting edema. Hollis Kennedy MD Mar 11, 2020 13:30
[2020-03-11] MEDS ORDERED: Miralax 17gm pkt ORAL PRN (14:30)
--- NOTE | 2020-03-11 16:27 | Internal Med Progress Note ---
Subjective Date of Service: Mar 11, 2020 Physician Name Bhaskar Kraus Attending Physician Maico Dang MD Current Medications Medications (Trade) Dose Ordered Sig/Alex Route PRN Reason Start Time Stop Time Status Last Admin Dose Admin Acetaminophen (Tylenol) 650 mg Q6H PRN ORAL PAIN 1-3/HEADACHE 03/09/20 20:00 04/08/20 19:59 03/10/20 16:28 Acetaminophen/ Codeine Phosphate (Tylenol #3) 1 tab Q6H PRN ORAL Pain Scale (6-10) 03/09/20 20:00 03/16/20 19:59 03/11/20 11:18 Atorvastatin Calcium (Lipitor) 40 mg BEDTIME ORAL 03/09/20 21:00 06/07/20 20:59 03/10/20 21:19 Docusate Sodium (Colace) 100 mg THREE TIMES A DAY ORAL 03/11/20 18:00 04/10/20 17:59 Heparin Sodium (Porcine) (Heparin 5000 units/ml) 5,000 units EVERY 12 HOURS SUBQ 03/09/20 21:00 04/23/20 20:59 03/11/20 09:07 Levothyroxine Sodium (Synthroid) 150 mcg DAILY@0630 ORAL 03/10/20 06:30 04/09/20 06:29 03/11/20 06:39 Lisinopril (PriniviL) 20 mg DAILY ORAL 03/10/20 09:00 04/09/20 08:59 03/11/20 09:06 Ondansetron HCl (Zofran) 4 mg Q4H PRN IVP Nausea & Vomiting 03/09/20 20:00 04/08/20 19:59 Polyethylene Glycol (Miralax) 17 gm DAILY PRN ORAL Constipation 03/11/20 14:30 04/10/20 14:29 Zolpidem Tartrate (Ambien) 5 mg HSPRN PRN ORAL Insomnia 03/09/20 20:00 03/16/20 19:59 Allergies: Coded Allergies: CEPHALEXIN (Verified Allergy, Severe, "throat closes up", 06/05/18) PAROXETINE (Verified Adverse Reaction, Intermediate, confusion; restlessness, 06/05/18) ROS Limited/Unobtainable: No Constitutional: Reports: no symptoms HEENT: Reports: no symptoms Cardiovascular: Reports: no symptoms Respiratory: Reports: no symptoms Gastrointestinal/Abdominal: Reports: no symptoms Genitourinary: Reports: no symptoms Subjective 69 YO F admitted with syncope. Cover for Int Med-Dr Dang Objective Last Vital Signs Date Time Temp Pulse Resp B/P (MAP) Pulse Ox O2 Delivery O2 Flow Rate FiO2 03/11/20 16:00 98.2 65 16 118/70 (86) 97 03/11/20 09:00 Room Air Laboratory Tests Test 03/10/20 19:05 03/11/20 03:05 Troponin I 0.000 ng/mL (0.000-0.056) 0.000 ng/mL (0.000-0.056) Intake and Output 03/10/20 03/11/20 19:00 07:00 Intake Total 324 ml 480 ml Balance 324 ml 480 ml Intake Oral 324 ml 480 ml # Voids 3 3 Objective PHYSICAL EXAMINATION: GENERAL: The patient is awake, responsive, and in no acute distress. HEAD AND NECK: Pupils equal and reactive to light. Extraocular movements intact. Neck was supple. No JVD. LUNGS: Good air entry. No wheezing or rales. HEART: S1, S2. Regular rhythm. No murmur or gallop. ABDOMEN: Soft, nondistended, nontender, mildly obese. EXTREMITIES: No cyanosis, clubbing, or edema. NEUROLOGIC: Cranial nerves II through XII grossly intact. Motor is 5/5 in all extremities. Gait is intact. RECTAL: Refused and deferred. GENITOURINARY: Refused and deferred. PSYCHIATRIC: Mood and affect is intact. Assessment/Plan Assessment/Plan Assessment/Plan Assessment/Plan 1. Syncope 2. Blunt head trauma as a result of fall with right scalp hematoma. 3. Hypertension. 4. History of left breast cancer, status post lumpectomy, chemotherapy and radiation therapy. 5. Morbid obesity. 6. Hypothyroidism. 7. Dyslipidemia. 8. 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 Dr. Guthrie from Pulmonary/Critical Care Dr. Kennedy from Cardiology/Electrophysiology. Follow up with echocardiogram and carotid duplex. Code status: full code. DVT prophylaxis: heparin subcu. Needs permanent pacemaker implant Bhsakar Kraus MD Mar 11, 2020 16:26
[2020-03-11] MEDS: Docusate 100mg cap ORAL SCH (17:22)
--- NOTE | 2020-03-11 17:28 | Neurology Progress Note ---
Interim History Interim History ROS Limited/Unobtainable: Yes Interim History CHIEF COMPLAINT: Syncopal episode. HPI : per chart review and discussion with pt: 69 y/o F w/ pmhx for HTN, HLD, right breast Ca, status post lumpectomy followed by chemotherapy and radiation therapy in 2010, history of macular degeneration of the eyes status post monthly injection, cholecystectomy, prediabetic, partial thyroidectomy due to the benign lump. She presented to the [facility] ED after having syncopal episode. The syncopal episode was in the morning, patient admits that it happened suddenly, did not have any symptoms prior to passing out. She thinks she did hit her head. No tongue biting or urinary incontinence. And she was not confused after she woke up which she admits was about 1 minutes. There was no seizure-like activity seen. This has never happened before. She has no new complaints is feeling stab. PAST MEDICAL HISTORY/PAST SURGICAL HISTORY: History of prediabetic, right breast cancer, status post lumpectomy and followed by chemotherapy and radiation therapy in 2010, macular degeneration of eyes on monthly injection, cholecystectomy, history of thyroidectomy due to the benign lump, and Synthroid for hypothyroidism. MEDICATIONS: Synthroid, atorvastatin 40 mg daily, vitamin D3 50,000 weekly, levothyroxine 150 mcg every morning, and lisinopril 20 mg daily. ALLERGIES: To Keflex as well as Taxol with anaphylaxis and facial edema. SOCIAL HISTORY: No smoking, alcohol, or drugs. FAMILY HISTORY: Uterine cancer, breast cancer runs in the family. Father had history of CAD with myocardial infarction and with heart disease. REVIEW OF SYSTEMS: Constitutional: denies chills /fever Eyes: denies diplopia ENT: denies dysphagia C.V.: denies chest pain Resp: denies dyspnea G.I.: denies diarrhea .: denies hematuria MSK: denies joint pain Integumentary: denies rash Neuro: + imbalance Psychiatric: denies depression Endocrine: denies flushing Heme: denies bruising Review of Systems Neuro Review of Systems No double vision, no facial weakness, no difficulty swallowing no weakness numbness or tingling in the body, no headache All Systems: reviewed and negative except above Objective Physical Exam Last Vital Signs Date Time Temp Pulse Resp B/P (MAP) Pulse Ox O2 Delivery O2 Flow Rate FiO2 03/11/20 16:00 98.2 65 16 118/70 (86) 97 03/11/20 09:00 Room Air Laboratory Tests Test 03/10/20 19:05 03/11/20 03:05 Troponin I 0.000 ng/mL (0.000-0.056) 0.000 ng/mL (0.000-0.056) EENT: benign Neurologic Exam Mental Status: awake, alert, oriented x4, normal cognition, good mathematical skills, normal recent memory, normal remote memory, preserved visuospatial function Speech: normal speech, no dysarthia Language: normal language, no aphasia Cranial Nerve II: fundus normal - was not assessed , visual casanova, no papilledema Cranial Nerves III, IV, : PERRLA, EOMI, pupils Cranial Nerve V: normal facial sensations, temporales function normal, masseters function normal, pterygoids function normal Cranial Nerve VII: no facial asymmetry, normal facial expressions Cranial Nerve VIII: normal hearing, no nystagmus Cranial Nerve IX: normal palate elevation, gag response Cranial Nerve X: no voice hoarseness Cranial Nerve XI: SCM symmetric, trapezii function normal Cranial Nerve XII: tongue midline, no tongue atrophy/fasciculations Motor System: normal muscle tone, strength 5/5, no involuntary movement, no muscle wasting Sensory: normal pinprick, normal light touch, normal position sense, normal graphesthesia Coordination: normal finger to nose bilaterally, normal heel to murillo bilaterally, negative Romberg test Deep Tendon Reflexes: 1+ bicep (L), 1+ bicep (R), 1+ brachioradialis (L), 1+ brachioradialis (R), 1+ knee (L), 1+ knee (R), 1+ ankle (L), 1+ ankle (R) Reflexes: mute plantar (L), mute plantar (R) Stance: normal Imaging Procedure: Carotid-Vert Duplex Scan-BILAT Indication: Syncope Technique: Grayscale and duplex images of the bilateral extracranial vertebral and carotid arteries Comparison: none Findings: On the right, grayscale and duplex images demonstrate osteoporotic plaquing resulting in less than 50% diameter narrowing. On the left, peak systolic velocity in the internal carotid artery which is 130 cm/s, and the internal common carotid artery velocity ratio is 2.1. Heart and cough after strut plaque is seen in this area. Patent bilateral vertebral arteries, antegrade flow Impression: Flow velocity elevation in the left internal carotid artery with evidence of calcified plaquing. By velocity criteria, degree of stenosis is 50-69% diameter. Less than 50% diameter stenosis on the right Impression/Recommendations Problems: (1) History of partial thyroidectomy (2) History of cholecystectomy (3) Grade I diastolic dysfunction (4) Pre-diabetes (5) Breast cancer (6) Syncope (7) Posterior subcapsular age-related cataract of right eye Recommendations Patient's syncope could be due to cardiac arrhythmia, versus possible TIA. Unlikely to be a seizure since there is no post ictal confusion, urinary in continence or tongue biting. Patient's ultrasound of the neck showed stenosis in the left internal carotid however this is not likely the cause of syncope, since circulation of the right internal carotid is good, and the vertebral arteries is patent. Dehydration is also on the ddx. recs MRI brain w/out contrast -would also get MRA head and neck cardiology consult to rule out arrhythmia tele, holter or ziopatch .EEG as outpt atorvastatin 40mg Vascular consult as outpt for stenosis Hunter Kirby M.D. Mar 11, 2020 17:28
[2020-03-11] MEDS: Atorvastatin 20mg tab ORAL SCH (20:42)
[2020-03-12] VITALS: BP_SYST 134; BP_SYST 136; BP_DIAS 68
[2020-03-12 04:00] VITALS: BP 127/69
[2020-03-12 08:00] VITALS: BP 139/71
[2020-03-12 08:30] LABS: BASOPHILS % (AUTO) 0.7 % (0.0-2.0); EOSINOPHILS % (AUTO) 4.7 % (0.0-3.0); HEMOGLOBIN 14.7 G/DL (12.0-16.0); LYMPHOCYTES % (AUTO) 29.9 % (20.0-45.0); MEAN CORPUSCULAR VOLUME 93 FL (80-99); MONOCYTES % (AUTO) 7.9 % (1.0-10.0); NEUTROPHILS % (AUTO) 56.9 % (45.0-75.0); PLATELET COUNT 207 K/UL (150-450); RED BLOOD COUNT 4.84 M/UL (4.20-5.40); WHITE BLOOD COUNT 7.2 K/UL (4.8-10.8)
[2020-03-12 08:48] LABS: ANION GAP 8 mmol/L (5-15); BLOOD UREA NITROGEN 16 mg/dL (7-18); CALCIUM 8.6 MG/DL (8.5-10.1); CARBON DIOXIDE 28 MMOL/L (21-32); CHLORIDE 104 MMOL/L (98-107); CREATININE 0.6 MG/DL (0.55-1.30); POTASSIUM 3.9 MMOL/L (3.5-5.1); SODIUM 140 MMOL/L (136-145)
[2020-03-12] MEDS: Docusate 100mg cap ORAL SCH ×3 (09:32→17:18)
[2020-03-12] MEDS: Lisinopril 20mg tab ORAL SCH (09:32)
[2020-03-12] MEDS: Heparin 5000 units/ml inj SUBQ SCH ×2 (09:33→20:53)
[2020-03-12 12:00] VITALS: BP 138/77
--- NOTE | 2020-03-12 13:44 | Internal Med Progress Note ---
Subjective Date of Service: Mar 12, 2020 Physician Name Bhaskar Kraus Attending Physician Maico Dang MD Current Medications Medications (Trade) Dose Ordered Sig/Alex Route PRN Reason Start Time Stop Time Status Last Admin Dose Admin Acetaminophen (Tylenol) 650 mg Q6H PRN ORAL PAIN 1-3/HEADACHE 03/09/20 20:00 04/08/20 19:59 03/10/20 16:28 Acetaminophen/ Codeine Phosphate (Tylenol #3) 1 tab Q6H PRN ORAL Pain Scale (6-10) 03/09/20 20:00 03/16/20 19:59 03/11/20 18:17 Atorvastatin Calcium (Lipitor) 40 mg BEDTIME ORAL 03/09/20 21:00 06/07/20 20:59 03/11/20 20:42 Docusate Sodium (Colace) 100 mg THREE TIMES A DAY ORAL 03/11/20 18:00 04/10/20 17:59 03/12/20 13:06 Heparin Sodium (Porcine) (Heparin 5000 units/ml) 5,000 units EVERY 12 HOURS SUBQ 03/09/20 21:00 04/23/20 20:59 03/12/20 09:33 Levothyroxine Sodium (Synthroid) 150 mcg DAILY@0630 ORAL 03/10/20 06:30 04/09/20 06:29 03/12/20 06:02 Lisinopril (PriniviL) 20 mg DAILY ORAL 03/10/20 09:00 04/09/20 08:59 03/12/20 09:32 Ondansetron HCl (Zofran) 4 mg Q4H PRN IVP Nausea & Vomiting 03/09/20 20:00 04/08/20 19:59 Polyethylene Glycol (Miralax) 17 gm DAILY PRN ORAL Constipation 03/11/20 14:30 04/10/20 14:29 03/12/20 06:02 Zolpidem Tartrate (Ambien) 5 mg HSPRN PRN ORAL Insomnia 03/09/20 20:00 03/16/20 19:59 Allergies: Coded Allergies: CEPHALEXIN (Verified Allergy, Severe, "throat closes up", 06/05/18) PAROXETINE (Verified Adverse Reaction, Intermediate, confusion; restlessness, 06/05/18) ROS Limited/Unobtainable: No Constitutional: Reports: no symptoms HEENT: Reports: no symptoms Cardiovascular: Reports: no symptoms Respiratory: Reports: no symptoms Gastrointestinal/Abdominal: Reports: no symptoms Genitourinary: Reports: no symptoms Neurologic/Psychiatric: Reports: no symptoms Subjective 69 YO F admitted with syncope. Cover for Int Jakob Dang Objective Last Vital Signs Date Time Temp Pulse Resp B/P (MAP) Pulse Ox O2 Delivery O2 Flow Rate FiO2 03/12/20 12:00 98.2 68 17 138/77 (97) 98 03/12/20 09:00 Room Air Laboratory Tests Test 03/12/20 07:55 White Blood Count 7.2 K/UL (4.8-10.8) Red Blood Count 4.84 M/UL (4.20-5.40) Hemoglobin 14.7 G/DL (12.0-16.0) Hematocrit 45.0 % (37.0-47.0) Mean Corpuscular Volume 93 FL (80-99) Mean Corpuscular Hemoglobin 30.3 PG (27.0-31.0) Mean Corpuscular Hemoglobin Concent 32.6 G/DL (32.0-36.0) Red Cell Distribution Width 13.0 % (11.6-14.8) Platelet Count 207 K/UL (150-450) Mean Platelet Volume 8.6 FL (6.5-10.1) Neutrophils (%) (Auto) 56.9 % (45.0-75.0) Lymphocytes (%) (Auto) 29.9 % (20.0-45.0) Monocytes (%) (Auto) 7.9 % (1.0-10.0) Eosinophils (%) (Auto) 4.7 % (0.0-3.0) H Basophils (%) (Auto) 0.7 % (0.0-2.0) Sodium Level 140 MMOL/L (136-145) Potassium Level 3.9 MMOL/L (3.5-5.1) Chloride Level 104 MMOL/L (98-107) Carbon Dioxide Level 28 MMOL/L (21-32) Anion Gap 8 mmol/L (5-15) Blood Urea Nitrogen 16 mg/dL (7-18) Creatinine 0.6 MG/DL (0.55-1.30) Estimat Glomerular Filtration Rate > 60 mL/min (>60) Glucose Level 141 MG/DL (74-106) H Calcium Level 8.6 MG/DL (8.5-10.1) Intake and Output 03/11/20 03/12/20 19:00 07:00 Intake Total 480 ml 360 ml Balance 480 ml 360 ml Intake Oral 480 ml Other 360 ml # Voids 3 2 Objective PHYSICAL EXAMINATION: GENERAL: The patient is awake, responsive, and in no acute distress. HEAD AND NECK: Pupils equal and reactive to light. Extraocular movements intact. Neck was supple. No JVD. LUNGS: Good air entry. No wheezing or rales. HEART: S1, S2. Regular rhythm. No murmur or gallop. ABDOMEN: Soft, nondistended, nontender, mildly obese. EXTREMITIES: No cyanosis, clubbing, or edema. NEUROLOGIC: Cranial nerves II through XII grossly intact. Motor is 5/5 in all extremities. Gait is intact. RECTAL: Refused and deferred. GENITOURINARY: Refused and deferred. PSYCHIATRIC: Mood and affect is intact. Assessment/Plan Assessment/Plan Assessment/Plan Assessment/Plan 1. Syncope 2. Blunt head trauma as a result of fall with right scalp hematoma. 3. Hypertension. 4. History of left breast cancer, status post lumpectomy, chemotherapy and radiation therapy. 5. Morbid obesity. 6. Hypothyroidism. 7. Dyslipidemia. 8. 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 Dr. Guthrie from Pulmonary/Critical Care Dr. Kennedy from Cardiology/Electrophysiology. Follow up with echocardiogram and carotid duplex. Code status: full code. DVT prophylaxis: heparin subcu. Needs permanent pacemaker implant Bhaskar Kraus MD Mar 12, 2020 13:44
--- NOTE | 2020-03-12 15:35 | Cardiology Report ---
APPROVED REPORT EXAM: Two-dimensional and M-mode echocardiogram with Doppler and color Doppler. INDICATION Syncope M-Mode DIMENSIONS IVSd0.9 (0.7-1.1cm)Left Atrium (MM)3.9 (1.6-4.0cm) LVDd5.1 (3.5-5.6cm)Aortic Root3.1 (2.0-3.7cm) PWd1.0 (0.7-1.1cm)Aortic Cusp Exc.2.0 (1.5-2.0cm) IVSs1.3 cm LVDs4.0 (2.5-4.0cm) PWs1.4 cm <Conclusion> Technically difficult study due to poor acoustical windows. Normal left ventricular chamber size, systolic function and wall motion to extent visualized. Left ventricular ejection fraction estimated to be 55-60 %. Study quality precludes accurate assessment of regional wall motion. No left ventricular hypertrophy. No evidence of pericardial effusion. All other cardiac chambers appear to be within normal limits. Focal aortic valve sclerosis with adequate cusp excursion. Thickened mitral valve leaflets with normal excursion. Mitral annulus and aortic root calcification. Pulmonic valve not well visualized. Normal tricuspid valve structure. IVC at normal size with slight physiologic collapse. A color flow and spectral Doppler study was performed and revealed: No aortic regurgitation. Trace mitral regurgitation Mitral diastolic velocities suggest reduced left ventricular relaxation c/w mild LV diastolic dysfunction (Grade I ). Trace tricuspid regurgitation. Tricuspid systolic velocities suggests peak right ventricular systolic pressure of 30 mmHg. No pulmonic regurgitation present.
--- NOTE | 2020-03-12 15:42 | Pulmonology Progress Note ---
Subjective ROS Limited/Unobtainable: No Constitutional: Reports: no symptoms HEENT: Repors: no symptoms Respiratory: Reports: no symptoms Allergies: Coded Allergies: CEPHALEXIN (Verified Allergy, Severe, "throat closes up", 06/05/18) PAROXETINE (Verified Adverse Reaction, Intermediate, confusion; restlessness, 06/05/18) All Systems: reviewed and negative except above Objective Last 24 Hour Vital Signs Date Time Temp Pulse Resp B/P (MAP) Pulse Ox O2 Delivery O2 Flow Rate FiO2 03/12/20 12:00 64 03/12/20 12:00 98.2 68 17 138/77 (97) 98 03/12/20 09:32 139/71 03/12/20 09:00 Room Air 03/12/20 08:00 99.5 93 03/12/20 08:00 59 03/12/20 08:00 99.5 62 17 139/71 (93) 93 03/12/20 08:00 62 65 66 03/12/20 04:00 97.6 99 03/12/20 04:00 97.6 58 16 127/69 (88) 99 03/12/20 04:00 59 03/12/20 00:00 98.1 98 03/12/20 00:00 98.1 60 16 134/68 (90) 98 03/12/20 00:00 58 03/11/20 21:00 Room Air 03/11/20 20:00 97.5 56 18 142/74 (96) 97 03/11/20 20:00 59 03/11/20 20:00 97.5 97 03/11/20 20:00 60 65 61 03/11/20 16:00 59 03/11/20 16:00 98.2 65 16 118/70 (86) 97 03/11/20 16:00 98.2 97 Intake and Output 03/11/20 03/12/20 19:00 07:00 Intake Total 480 ml 360 ml Balance 480 ml 360 ml Intake Oral 480 ml Other 360 ml # Voids 3 2 Objective for pacemaker insertion General Appearance: WD/WN, no acute distress HEENT: normocephalic Respiratory: chest wall non-tender, lungs clear, normal breath sounds Cardiovascular: normal peripheral pulses, normal rate, regular rhythm Abdomen: normal bowel sounds, soft, non tender, no organomegaly Genitourinary: normal external genitalia Skin: no rash Neurologic: blueprint tracer II-XII grossly normal Laboratory Tests 03/12/20 07:55: White Blood Count 7.2, Red Blood Count 4.84, Hemoglobin 14.7, Hematocrit 45.0, Mean Corpuscular Volume 93, Mean Corpuscular Hemoglobin 30.3, Mean Corpuscular Hemoglobin Concent 32.6, Red Cell Distribution Width 13.0, Platelet Count 207, Mean Platelet Volume 8.6, Neutrophils (%) (Auto) 56.9, Lymphocytes (%) (Auto) 29.9, Monocytes (%) (Auto) 7.9, Eosinophils (%) (Auto) 4.7H, Basophils (%) (Auto) 0.7, Sodium Level 140, Potassium Level 3.9, Chloride Level 104, Carbon Di oxide Level 28, Anion Gap 8, Blood Urea Nitrogen 16, Creatinine 0.6, Estimat Glomerular Filtration Rate > 60, Glucose Level 141H, Calcium Level 8.6 Current Medications Medications (Trade) Dose Ordered Sig/Alex Route PRN Reason Start Time Stop Time Status Last Admin Dose Admin Acetaminophen (Tylenol) 650 mg Q6H PRN ORAL PAIN 1-3/HEADACHE 03/09/20 20:00 04/08/20 19:59 03/10/20 16:28 Acetaminophen/ Codeine Phosphate (Tylenol #3) 1 tab Q6H PRN ORAL Pain Scale (6-10) 03/09/20 20:00 03/16/20 19:59 03/11/20 18:17 Atorvastatin Calcium (Lipitor) 40 mg BEDTIME ORAL 03/09/20 21:00 06/07/20 20:59 03/11/20 20:42 Docusate Sodium (Colace) 100 mg THREE TIMES A DAY ORAL 03/11/20 18:00 04/10/20 17:59 03/12/20 13:06 Heparin Sodium (Porcine) (Heparin 5000 units/ml) 5,000 units EVERY 12 HOURS SUBQ 03/09/20 21:00 04/23/20 20:59 03/12/20 09:33 Levothyroxine Sodium (Synthroid) 150 mcg DAILY@0630 ORAL 03/10/20 06:30 04/09/20 06:29 03/12/20 06:02 Lisinopril (PriniviL) 20 mg DAILY ORAL 03/10/20 09:00 04/09/20 08:59 03/12/20 09:32 Ondansetron HCl (Zofran) 4 mg Q4H PRN IVP Nausea & Vomiting 03/09/20 20:00 04/08/20 19:59 Polyethylene Glycol (Miralax) 17 gm DAILY PRN ORAL Constipation 03/11/20 14:30 04/10/20 14:29 03/12/20 06:02 Zolpidem Tartrate (Ambien) 5 mg HSPRN PRN ORAL Insomnia 03/09/20 20:00 03/16/20 19:59 Assessment/Plan Problems: (1) Syncope (2) Breast cancer (3) Pre-diabetes (4) History of cholecystectomy (5) History of partial thyroidectomy Assessment/Plan for pacemaker insertion 2D echo reviewed: EF 55%, grade 1 diastolic dysfunction carotid artery duplex was negative keep in telemetry f/u Blood sugar. dvt prophylaxis Danette Guthrie MD Mar 12, 2020 15:41
--- NOTE | 2020-03-12 15:54 | Neurology Progress Note ---
Interim History Interim History ROS Limited/Unobtainable: No Interim History .VS stable; No new neuro changes. Working well with therapy. No new weakness numbness or tingly, TONG or pain. Discussed case with daughter at length. REVIEW OF SYSTEMS: Constitutional: denies chills /fever Eyes: denies diplopia ENT: denies dysphagia C.V.: denies chest pain Resp: denies dyspnea G.I.: denies diarrhea .: denies hematuria MSK: denies joint pain Integumentary: denies rash Neuro: denies imbalance Psychiatric: denies depression Endocrine: denies flushing Heme: denies bruising Objective Physical Exam Last Vital Signs Date Time Temp Pulse Resp B/P (MAP) Pulse Ox O2 Delivery O2 Flow Rate FiO2 03/12/20 12:00 64 03/12/20 12:00 98.2 17 138/77 (97) 98 03/12/20 09:00 Room Air Laboratory Tests Test 03/12/20 07:55 White Blood Count 7.2 K/UL (4.8-10.8) Red Blood Count 4.84 M/UL (4.20-5.40) Hemoglobin 14.7 G/DL (12.0-16.0) Hematocrit 45.0 % (37.0-47.0) Mean Corpuscular Volume 93 FL (80-99) Mean Corpuscular Hemoglobin 30.3 PG (27.0-31.0) Mean Corpuscular Hemoglobin Concent 32.6 G/DL (32.0-36.0) Red Cell Distribution Width 13.0 % (11.6-14.8) Platelet Count 207 K/UL (150-450) Mean Platelet Volume 8.6 FL (6.5-10.1) Neutrophils (%) (Auto) 56.9 % (45.0-75.0) Lymphocytes (%) (Auto) 29.9 % (20.0-45.0) Monocytes (%) (Auto) 7.9 % (1.0-10.0) Eosinophils (%) (Auto) 4.7 % (0.0-3.0) H Basophils (%) (Auto) 0.7 % (0.0-2.0) Sodium Level 140 MMOL/L (136-145) Potassium Level 3.9 MMOL/L (3.5-5.1) Chloride Level 104 MMOL/L (98-107) Carbon Dioxide Level 28 MMOL/L (21-32) Anion Gap 8 mmol/L (5-15) Blood Urea Nitrogen 16 mg/dL (7-18) Creatinine 0.6 MG/DL (0.55-1.30) Estimat Glomerular Filtration Rate > 60 mL/min (>60) Glucose Level 141 MG/DL (74-106) H Calcium Level 8.6 MG/DL (8.5-10.1) EENT: benign Neurologic Exam Mental Status: awake, alert, oriented x4, normal cognition, good mathematical skills, normal recent memory, normal remote memory, preserved visuospatial function Speech: normal speech, no dysarthia Language: normal language, no aphasia Cranial Nerve II: fundus normal - was not assessed , visual casanova, no papilledema Cranial Nerves III, IV, : PERRLA, EOMI, pupils Cranial Nerve V: normal facial sensations, temporales function normal, masseters function normal, pterygoids function normal Cranial Nerve VII: no facial asymmetry, normal facial expressions Cranial Nerve VIII: normal hearing, no nystagmus Cranial Nerve IX: normal palate elevation, gag response Cranial Nerve X: no voice hoarseness Cranial Nerve XI: SCM symmetric, trapezii function normal Cranial Nerve XII: tongue midline, no tongue atrophy/fasciculations Motor System: normal muscle tone, strength 5/5, no involuntary movement, no muscle wasting Sensory: normal pinprick, normal light touch, normal position sense, normal graphesthesia Coordination: normal finger to nose bilaterally, normal heel to murillo bilaterally, negative Romberg test Deep Tendon Reflexes: 1+ bicep (L), 1+ bicep (R), 1+ brachioradialis (L), 1+ brachioradialis (R), 1+ knee (L), 1+ knee (R), 1+ ankle (L), 1+ ankle (R) Reflexes: mute plantar (L), mute plantar (R) Stance: normal Impression/Recommendations Problems: (1) History of partial thyroidectomy (2) History of cholecystectomy (3) Grade I diastolic dysfunction (4) Pre-diabetes (5) Breast cancer (6) Syncope (7) Posterior subcapsular age-related cataract of right eye (8) Mild TBI (9) OTHER SPECIFIED HEART BLOCK Recommendations Patient's syncope could be due to cardiac arrhythmia, versus possible TIA. Unlikely to be a seizure since there is no post ictal confusion, urinary incontinence or tongue biting. Patient's ultrasound of the neck showed stenosis in the left internal carotid however this is not likely the cause of syncope, since circulation of the right internal carotid is good, and the vertebral arteries is patent. Dehydration is also on the ddx. recs MRI brain w/out contrast -would also get MRA head and neck cardiology consult to rule out arrhythmia tele, holter or ziopatch .EEG as outpt atorvastatin 40mg Vascular consult as outpt for stenosis I spent 65 minutes on this patient's case, and 30 mins was dedicated to counseling and/or care coordination discussing case and mgmt with daughter reagrding diagnosis. Hunter Kirby M.D. Mar 12, 2020 15:54
--- NOTE | 2020-03-12 15:57 | Cardiology Report ---
APPROVED REPORT EKG Measurement Heart [id number] <Conclusion> Sinus bradycardia with 1st degree AV block Left axis deviation Right bundle branch block Left ventricular hypertrophy with repolarization abnormality Inferior infarct, age undetermined Anterolateral infarct, age undetermined Abnormal ECG
[2020-03-12 16:00] VITALS: BP 135/68
--- NOTE | 2020-03-12 17:09 | Cardiac Electrophysiology PN ---
Assessment/Plan Assessment/Plan 1. Syncopal episode resulting in head injury. Carotid US no significant stenosis. Likely due to intermittent complete heart block as patient has underlying trifascicular block with complete first-degree AV block with a MN interval of 240 millisecond as well as left bundle-branch block with a QRS duration of 132 milliseconds as well as left axis deviation. She would need a permanent pacemaker placement. DW daughter Samina at [phone] the risks and benefits of permanent pacer implantation. They agreed. Awaiting consent to schedule patient 2. Hypertension. Continue lisinopril 20 mg daily. 3. Hyperlipidemia, on Lipitor. 4. Hypothyroidism, on Synthroid. SATURNINO RN and Dr Kraus and daughter Subjective Subjective No recurrence of Syncope. However has trifascicular block including LBBB and First degree AV block and LAD off any AVN asif DW daughter Samina at [phone] the risks and benefits of permanent pacer implantation. They agreed. Awaiting consent to schedule patient Objective Last 24 Hour Vital Signs Date Time Temp Pulse Resp B/P (MAP) Pulse Ox O2 Delivery O2 Flow Rate FiO2 03/12/20 16:00 97.5 98 03/12/20 16:00 66 03/12/20 16:00 97.5 62 17 135/68 (90) 98 03/12/20 12:00 98.2 98 03/12/20 12:00 64 03/12/20 12:00 98.2 68 17 138/77 (97) 98 03/12/20 09:32 139/71 03/12/20 09:00 Room Air 03/12/20 08:00 99.5 93 03/12/20 08:00 59 03/12/20 08:00 99.5 62 17 139/71 (93) 93 03/12/20 08:00 62 65 66 03/12/20 04:00 97.6 99 03/12/20 04:00 97.6 58 16 127/69 (88) 99 03/12/20 04:00 59 03/12/20 00:00 98.1 98 03/12/20 00:00 98.1 60 16 134/68 (90) 98 03/12/20 00:00 58 03/11/20 21:00 Room Air 03/11/20 20:00 97.5 56 18 142/74 (96) 97 03/11/20 20:00 59 03/11/20 20:00 97.5 97 03/11/20 20:00 60 65 61 Intake and Output 03/11/20 03/12/20 19:00 07:00 Intake Total 480 ml 360 ml Balance 480 ml 360 ml Intake Oral 480 ml Other 360 ml # Voids 3 2 Laboratory Tests Test 03/12/20 07:55 White Blood Count 7.2 K/UL (4.8-10.8) Red Blood Count 4.84 M/UL (4.20-5.40) Hemoglobin 14.7 G/DL (12.0-16.0) Hematocrit 45.0 % (37.0-47.0) Mean Corpuscular Volume 93 FL (80-99) Mean Corpuscular Hemoglobin 30.3 PG (27.0-31.0) Mean Corpuscular Hemoglobin Concent 32.6 G/DL (32.0-36.0) Red Cell Distribution Width 13.0 % (11.6-14.8) Platelet Count 207 K/UL (150-450) Mean Platelet Volume 8.6 FL (6.5-10.1) Neutrophils (%) (Auto) 56.9 % (45.0-75.0) Lymphocytes (%) (Auto) 29.9 % (20.0-45.0) Monocytes (%) (Auto) 7.9 % (1.0-10.0) Eosinophils (%) (Auto) 4.7 % (0.0-3.0) H Basophils (%) (Auto) 0.7 % (0.0-2.0) Sodium Level 140 MMOL/L (136-145) Potassium Level 3.9 MMOL/L (3.5-5.1) Chloride Level 104 MMOL/L (98-107) Carbon Dioxide Level 28 MMOL/L (21-32) Anion Gap 8 mmol/L (5-15) Blood Urea Nitrogen 16 mg/dL (7-18) Creatinine 0.6 MG/DL (0.55-1.30) Estimat Glomerular Filtration Rate > 60 mL/min (>60) Glucose Level 141 MG/DL (74-106) H Calcium Level 8.6 MG/DL (8.5-10.1) Objective HEAD AND NECK: Showed no JVD or carotid bruits. LUNGS: Clear. CARDIOVASCULAR: Shows regular S1 and S2 with no gallop or murmur. ABDOMEN: Soft and nontender. EXTREMITIES: No pitting edema. Hollis Kennedy MD Mar 12, 2020 17:09
[2020-03-12 20:00] VITALS: BP 120/73
[2020-03-12] MEDS: Atorvastatin 20mg tab ORAL SCH (20:50)
[2020-03-13] VITALS (14 sets, daily range): BP systolic 112–159; BP diastolic 61–87
[2020-03-13] MEDS ORDERED: Isovue-M 300 15ml INJ ONE (07:34)
[2020-03-13] MEDS ORDERED: Lidocaine 1% Plain 30 ml INJ ONE (07:35)
[2020-03-13 07:49] LABS: BASOPHILS % (AUTO) 0.7 % (0.0-2.0); EOSINOPHILS % (AUTO) 4.7 % (0.0-3.0); HEMATOCRIT 42.3 % (37.0-47.0); HEMOGLOBIN 14.2 G/DL (12.0-16.0); LYMPHOCYTES % (AUTO) 25.8 % (20.0-45.0); MEAN CORPUSCULAR VOLUME 92 FL (80-99); MONOCYTES % (AUTO) 9.9 % (1.0-10.0); NEUTROPHILS % (AUTO) 58.9 % (45.0-75.0); PLATELET COUNT 199 K/UL (150-450); RED BLOOD COUNT 4.61 M/UL (4.20-5.40); RED CELL DISTRIBUTION WIDTH 12.7 % (11.6-14.8); WHITE BLOOD COUNT 7.7 K/UL (4.8-10.8)
[2020-03-13 08:17] LABS: BLOOD UREA NITROGEN 18 mg/dL (7-18); CALCIUM 8.8 MG/DL (8.5-10.1); CHLORIDE 105 MMOL/L (98-107); CREATININE 0.6 MG/DL (0.55-1.30); POTASSIUM 4.1 MMOL/L (3.5-5.1); SODIUM 141 MMOL/L (136-145)
[2020-03-13 08:22] LABS: CARBON DIOXIDE 29 MMOL/L (21-32)
[2020-03-13] MEDS: Docusate 100mg cap ORAL SCH ×3 (08:59→17:37)
[2020-03-13] MEDS: Lisinopril 20mg tab ORAL SCH (08:59)
[2020-03-13] MEDS ORDERED: NS Irrig 1000ml ONE (09:00)
[2020-03-13] MEDS ORDERED: Sterile Water Irrig 1000ml IRRIG ONE (09:00)
[2020-03-13] MEDS ORDERED: LR 1000ml ONE (09:00)
[2020-03-13] MEDS ORDERED: Lidocaine 1% MPF 10mg/ml 5ml ONE (09:00)
[2020-03-13] MEDS: Heparin 5000 units/ml inj SUBQ SCH ×2 (09:00→20:34)
--- NOTE | 2020-03-13 09:32 | Pre-Procedure Note/Attestation ---
Pre-Procedure Note/Attestation Complete Prior to Procedure Planned Procedure: left Indications for Procedure Pre-Operative Diagnosis: syncope, trifascicular block Attestation I attest that I discussed the nature of the procedure; its benefits; risks and complications; and alternatives (and the risks and benefits of such alternatives), prior to the procedure, with the patient (or the patient's legal pest control service representative). I attest that, if there was a reasonable possibility of needing a blood transfusion, the patient (or the patient's legal pest control service representative) was given the [facility] standardized written summary, pursuant to the [place] Blood Safety Act ([place] Health and Safety Code # 1645, as amended). I attest that I re-evaluated the patient just prior to the surgery and that there has been no change in the patient's H&P, except as documented below: Hollis Kennedy MD Mar 13, 2020 09:31
[2020-03-13] MEDS ORDERED: Metoclopramide 10mg/2ml Inj IVP PRN (09:45)
[2020-03-13] MEDS ORDERED: Atropine Sulfate 0.4mg/ml inj IVP PRN (09:45)
[2020-03-13] MEDS ORDERED: Meperidine 25mg/1ml Inj (FOR RIGORS ONLY) IV PRN (09:45)
[2020-03-13] MEDS ORDERED: LR 1000ml 1,000 ML IVLG SCH (09:45)
[2020-03-13] MEDS ORDERED: DiphenhydrAMINE 50mg/ml Inj IVP PRN (09:45)
[2020-03-13] MEDS ORDERED: fentaNYL 100 mcg/2 mL IV PRN (09:45)
[2020-03-13] MEDS ORDERED: Midazolam 2mg/2ml Inj IVP PRN (09:45)
[2020-03-13] MEDS ORDERED: Hydromorphone 0.5mg/0.5ml inj IVP PRN (09:45)
[2020-03-13] MEDS ORDERED: HYDROcodone/Acetamin 7.5/325 tab ORAL PRN (09:45)
[2020-03-13] MEDS ORDERED: oxyCODONE HCL/Acetaminophen 5/325mg ORAL PRN (09:45)
[2020-03-13] MEDS ORDERED: HYDROcodone/Acetamin 5/325 tab ORAL PRN (09:45)
[2020-03-13] MEDS ORDERED: LORazepam Inj 2mg/ml 1ml IV PRN (09:45)
[2020-03-13] MEDS ORDERED: Labetalol 5mg/ml 20ml vial IV PRN (09:45)
--- NOTE | 2020-03-13 10:01 | Anethesia Preoperative Eval ---
Anesthesia Pre-op PMH/ROS General Date of Evaluation: Mar 13, 2020 Time of Evaluation: 09:19 Anesthesiologist: Allen ASA Score: ASA 4 Mallampati Score Class I : Soft palate, uvula, fauces, pillars visible Class II: Soft palate, uvula, fauces visible Class III: Soft palate, base of uvula visible Class IV: Only hard plate visible Mallampati Classification: Class II Surgeon: Marcia Diagnosis: CHB Surgical Procedure: Permanent Pacemker Anesthesia History: none Family History: no anesthesia problems Allergies: Coded Allergies: CEPHALEXIN (Verified Allergy, Severe, "throat closes up", 06/05/18) PAROXETINE (Verified Adverse Reaction, Intermediate, confusion; restlessness, 06/05/18) Medications: see eMAR Patient NPO?: Yes Past Medical History Cardiovascular: Reports: HTN, CAD, arrhythmia - CHB, Syncope, other - HL Endocrine: Reports: hypothyroidism HEENT: Reports: cataract (L), cataract (R) Hematology/Immune: Reports: other - Breast CA PSxH Narrative: Cholecystectomy, Umbilical Hernia, Lumpectomy, Neck SXS Anesthesia Pre-op Phys. Exam Physician Exam Last Vital Signs Date Time Temp Pulse Resp B/P (MAP) Pulse Ox O2 Delivery O2 Flow Rate FiO2 03/13/20 09:00 Room Air 03/13/20 08:59 116/69 03/13/20 08:00 98.4 95 03/13/20 08:00 62 18 Constitutional: NAD Neurologic: CN 2-12 intact Cardiovascular: RRR Respiratory: CTA Gastrointestinal: S/NT/ND Airway Exam Mallampati Score: Class II MO: limited ROM: limited Teeth: missing, intact Anesthesia Pre-op A/P Labs Hematology Test 03/13/20 07:40 White Blood Count 7.7 K/UL (4.8-10.8) Red Blood Count 4.61 M/UL (4.20-5.40) Hemoglobin 14.2 G/DL (12.0-16.0) Hematocrit 42.3 % (37.0-47.0) Mean Corpuscular Volume 92 FL (80-99) Mean Corpuscular Hemoglobin 30.8 PG (27.0-31.0) Mean Corpuscular Hemoglobin Concent 33.5 G/DL (32.0-36.0) Red Cell Distribution Width 12.7 % (11.6-14.8) Platelet Count 199 K/UL (150-450) Mean Platelet Volume 8.6 FL (6.5-10.1) Neutrophils (%) (Auto) 58.9 % (45.0-75.0) Lymphocytes (%) (Auto) 25.8 % (20.0-45.0) Monocytes (%) (Auto) 9.9 % (1.0-10.0) Eosinophils (%) (Auto) 4.7 % (0.0-3.0) H Basophils (%) (Auto) 0.7 % (0.0-2.0) Chemistry Test 03/13/20 07:40 Sodium Level 141 MMOL/L (136-145) Potassium Level 4.1 MMOL/L (3.5-5.1) Chloride Level 105 MMOL/L (98-107) Carbon Dioxide Level 29 MMOL/L (21-32) Blood Urea Nitrogen 18 mg/dL (7-18) Creatinine 0.6 MG/DL (0.55-1.30) Estimat Glomerular Filtration Rate > 60 mL/min (>60) Glucose Level 118 MG/DL (74-106) H Calcium Level 8.8 MG/DL (8.5-10.1) Risk Assessment & Plan Assessment: ASA 4 Plan: TIVA Status Change Before Surgery: No Pre-Antibiotics Dru Gram Ancef IV Given Within 1 Hr of Incision: Yes Time Given: 09:46 Cristo Villa MD Mar 13, 2020 10:00
--- NOTE | 2020-03-13 10:02 | Immediate Post-Op Evaluation ---
Immediate Post-Op Evalulation Immediate Post-Op Evalulation Procedure: Permanent Pacemker Date of Evaluation: Mar 13, 2020 Time of Evaluation: 10:59 IV Fluids: 200 LR Blood Products: 0 Estimated Blood Loss: 10 Urinary Output: 0 Blood Pressure Systolic: 148 Blood Pressure Diastolic: 87 Pulse Rate: 70 Respiratory Rate: 16 O2 Sat by Pulse Oximetry: 100 Temperature (Fahrenheit): 97.4 Pain Score (1-10): 2 Nausea: No Vomiting: No Complications 0 Patient Status: awake, reacts, patent, none Hydration Status: adequate Dru Gram Ancef IV Given Within 1 Hr of Incision: Yes Time Given: 09:46 Cristo Villa MD Mar 13, 2020 10:02
--- NOTE | 2020-03-13 10:03 | 48 Hour Post Anesthesia Eval ---
Post Anesthesia Evaluation Procedure: Permanent Pacemker Date of Evaluation: Mar 13, 2020 Time of Evaluation: 13:23 Blood Pressure Systolic: 147 0: 68 Pulse Rate: 70 Respiratory Rate: 18 Temperature (Fahrenheit): 98 O2 Sat by Pulse Oximetry: 99 Airway: patent Nausea: No Vomiting: No Pain Intensity: 2 Hydration Status: adequate Cardiopulmonary Status: Stable Mental Status/LOC: patient returned to baseline Follow-up Care/Observations: 0 Post-Anesthesia Complications: 0 Follow-up care needed: N/A Cristo Villa MD Mar 13, 2020 10:03
--- NOTE | 2020-03-13 10:56 | Cardiac Electrophysiology PN ---
Assessment/Plan Assessment/Plan 1. Syncope resulting in head injury. Carotid US no significant stenosis. Likely due to intermittent complete heart block as patient has underlying trifascicular block with complete first-degree AV block with a [place] interval of 240 millisecond as well as left bundle-branch block with a QRS duration of 132 milliseconds as well as left axis deviation. DW daughter Samina at [phone] the risks and benefits of permanent pacer implantation. They agreed. S/P successful DDD [employer] P[employer] implant today 2. Hypertension. Continue lisinopril 20 mg daily. 3. Hyperlipidemia, on Lipitor. 4. Hypothyroidism, on Synthroid. DW RN and Dr Kraus and daughter Subjective Subjective Unexplained Syncope and trifascicular block including LBBB and First degree AV block and LAD off any AVN asif DW daughter Samina at [phone] the risks and benefits of permanent pacer implantation. They agreed S/P successful DDD [employer] implant today. Dictated [id number] Objective Last 24 Hour Vital Signs Date Time Temp Pulse Resp B/P (MAP) Pulse Ox O2 Delivery O2 Flow Rate FiO2 03/13/20 10:47 67 18 151/61 100 Simple Mask 6 03/13/20 10:45 70 18 99 03/13/20 10:44 70 16 100 03/13/20 10:42 97.4 69 18 148/87 100 Simple Mask 6 03/13/20 09:00 Room Air 03/13/20 08:59 116/69 03/13/20 08:00 98.4 95 03/13/20 08:00 98.4 62 18 117/66 (83) 97 03/13/20 08:00 62 65 64 03/13/20 08:00 60 03/13/20 04:00 97.3 61 16 112/67 (82) 95 03/13/20 04:00 60 03/13/20 04:00 97.3 95 03/13/20 00:00 97.7 97 03/13/20 00:00 97.7 65 16 116/64 (81) 97 03/13/20 00:00 66 03/12/20 21:00 Room Air 03/12/20 20:00 66 03/12/20 20:00 95.0 96 03/12/20 20:00 65 73 72 03/12/20 20:00 95.0 60 16 120/73 (89) 96 03/12/20 16:00 97.5 98 03/12/20 16:00 66 03/12/20 16:00 97.5 62 17 135/68 (90) 98 03/12/20 12:00 98.2 98 03/12/20 12:00 64 03/12/20 12:00 98.2 68 17 138/77 (97) 98 Intake and Output 03/12/20 03/13/20 19:00 07:00 Intake Total 600 ml Balance 600 ml Intake Oral 600 ml # Voids 4 Laboratory Tests Test 03/13/20 07:40 White Blood Count 7.7 K/UL (4.8-10.8) Red Blood Count 4.61 M/UL (4.20-5.40) Hemoglobin 14.2 G/DL (12.0-16.0) Hematocrit 42.3 % (37.0-47.0) Mean Corpuscular Volume 92 FL (80-99) Mean Corpuscular Hemoglobin 30.8 PG (27.0-31.0) Mean Corpuscular Hemoglobin Concent 33.5 G/DL (32.0-36.0) Red Cell Distribution Width 12.7 % (11.6-14.8) Platelet Count 199 K/UL (150-450) Mean Platelet Volume 8.6 FL (6.5-10.1) Neutrophils (%) (Auto) 58.9 % (45.0-75.0) Lymphocytes (%) (Auto) 25.8 % (20.0-45.0) Monocytes (%) (Auto) 9.9 % (1.0-10.0) Eosinophils (%) (Auto) 4.7 % (0.0-3.0) H Basophils (%) (Auto) 0.7 % (0.0-2.0) Sodium Level 141 MMOL/L (136-145) Potassium Level 4.1 MMOL/L (3.5-5.1) Chloride Level 105 MMOL/L (98-107) Carbon Dioxide Level 29 MMOL/L (21-32) Blood Urea Nitrogen 18 mg/dL (7-18) Creatinine 0.6 MG/DL (0.55-1.30) Estimat Glomerular Filtration Rate > 60 mL/min (>60) Glucose Level 118 MG/DL (74-106) H Calcium Level 8.8 MG/DL (8.5-10.1) Microbiology Date/Time Source Procedure Growth Status 03/12/20 21:02 Nasopharynx SARS-CoV-2 RdRp Gene Assay - Final Complete Objective HEAD AND NECK: Showed no JVD or carotid bruits. LUNGS: Clear. CARDIOVASCULAR: Shows regular S1 and S2 with no gallop or murmur. Pacer left subclavian with no hematoma ABDOMEN: Soft and nontender. EXTREMITIES: No pitting edema. Hollis Kennedy MD Mar 13, 2020 10:56
--- NOTE | 2020-03-13 11:19 | Diagnostic Imaging Report ---
Indication: Pneumothorax Technique: Single AP view of the chest. Comparison: None available Findings: The heart is mildly enlarged when accounting for projection and technique. No airspace consolidation. Mild central pulmonary vascular congestion. No pneumothorax. No pleural effusion. There is a left-sided dual lead ICD/pacemaker. Tacking material/bandaging projects over the left shoulder. No acute osseous abnormality. Indeterminate circular density projects of the left ventricle. IMPRESSION: 1. No pneumothorax, pleural effusion, or airspace consolidation. 2. Mild cardiomegaly. 3. Left-sided dual lead ICD/pacemaker.
[2020-03-13] MEDS ORDERED: Morphine Sulfate 2mg/ml Inj(IV/IM USE ONLY) IVP PRN (12:00)
[2020-03-13] MEDS: Tylenol #3 tab (300mg/30mg) ORAL PRN ×2 (13:30→20:33)
[2020-03-13] MEDS ORDERED: Vancomycin 1.5 GM in NS 275 ML IVPB SCH (14:00)
--- NOTE | 2020-03-13 18:15 | Operative Note - Dictated ---
DATE OF OPERATION: 03/13/2020 DUAL-CHAMBER PERMANENT PACEMAKER IMPLANTATION SURGEON: Hollis Kennedy MD REFERRING PHYSICIAN: Maico Dang MD INDICATION FOR THE PROCEDURE: Syncope in a patient with underlying trifascicular block. PROCEDURES PERFORMED: 1. Dual-chamber permanent pacemaker implantation. 2. Fluoroscopic supervision and interpretation. OPERATIVE REPORT: The patient was brought into electrophysiology laboratory in the fasting state after informed consent was obtained. The patient was prepped and draped by the anesthesiologist. The patient received antibiotics within an hour of incision. After prep and drape and under sterile condition, a total of 20 mL lidocaine was given to left prepectoralis area. An incision was made along the left deltopectoral groove. Sharp and blunt dissection was made to the level of pectoralis fascia. The cephalic vein was isolated and a cutdown was performed. The right atrial and right ventricular leads were placed through this access and was placed in the right ventricular apex and atrial appendage with excellent sensing and pacing parameters. Both leads were fixed to underlying pectoralis fascia. A pocket was made close to the venous access site and was irrigated with antibiotic solution. Both leads were then connected to the pacemaker and left in the pocket. The pocket was then closed in three layers using 2-0 Vicryl and Dermabond. The patient suffered no immediate complications from the procedure and was transferred to the recovery room in stable condition. FINDINGS: The pacemaker is from [employer]. It is [employer]urity MRI [id number] pacemaker, serial number is [id number]. The right atrial lead is from [employer], it is 2088TC, 46 cm, serial number is [id number]. Right ventricular lead is from [employer], it is 2088TC, 52 cm, serial number is [id number]. The P-wave amplitude is 1.6 millivolts, threshold is 1.5 volts at 0.5 millisecond, impedance of 590 ohms. R-wave is 10.3 millivolts, threshold is 0.75 volts at 0.4 milliseconds, impedance of 550 ohms. IMPRESSION: 1. Successful dual-chamber permanent pacemaker implantation. 2. Pacemaker was programmed to lower rate of 60 and upper rate of 120. 3. No immediate complications from the procedure. Hollis Kennedy M.D. DR: SANTOSH JOB#: [id number] CC:
--- NOTE | 2020-03-13 18:55 | Pulmonology Progress Note ---
Subjective ROS Limited/Unobtainable: No Constitutional: Reports: no symptoms HEENT: Repors: no symptoms Respiratory: Reports: no symptoms Allergies: Coded Allergies: CEPHALEXIN (Verified Allergy, Severe, "throat closes up", 06/05/18) PAROXETINE (Verified Adverse Reaction, Intermediate, confusion; restlessness, 06/05/18) All Systems: reviewed and negative except above Objective Last 24 Hour Vital Signs Date Time Temp Pulse Resp B/P (MAP) Pulse Ox O2 Delivery O2 Flow Rate FiO2 03/13/20 16:00 97.7 65 18 116/61 (79) 98 03/13/20 16:00 65 03/13/20 16:00 97.7 96 03/13/20 12:00 67 03/13/20 12:00 97.5 97 03/13/20 11:50 97.9 64 23 143/79 100 Nasal Cannula 3 03/13/20 11:42 60 15 129/76 100 Nasal Cannula 3 03/13/20 11:27 60 20 142/71 100 Nasal Cannula 3 03/13/20 11:12 61 15 143/77 100 Room Air 03/13/20 11:02 66 14 159/80 100 Simple Mask 6 03/13/20 10:52 63 13 151/83 100 Simple Mask 6 03/13/20 10:47 67 18 151/61 100 Simple Mask 6 03/13/20 10:45 70 18 99 03/13/20 10:44 70 16 100 03/13/20 10:42 97.4 69 18 148/87 100 Simple Mask 6 03/13/20 09:00 Room Air 03/13/20 08:59 116/69 03/13/20 08:00 98.4 95 03/13/20 08:00 98.4 62 18 117/66 (83) 97 03/13/20 08:00 62 65 64 03/13/20 08:00 60 03/13/20 04:00 97.3 61 16 112/67 (82) 95 03/13/20 04:00 60 03/13/20 04:00 97.3 95 03/13/20 00:00 97.7 97 03/13/20 00:00 97.7 65 16 116/64 (81) 97 03/13/20 00:00 66 03/12/20 21:00 Room Air 03/12/20 20:00 66 03/12/20 20:00 95.0 96 03/12/20 20:00 65 73 72 03/12/20 20:00 95.0 60 16 120/73 (89) 96 Intake and Output 03/12/20 03/13/20 19:00 07:00 Intake Total 600 ml Balance 600 ml Intake Oral 600 ml # Voids 4 Objective for pacemaker insertion General Appearance: WD/WN, no acute distress HEENT: normocephalic Respiratory: chest wall non-tender, lungs clear, normal breath sounds Cardiovascular: normal peripheral pulses, normal rate, regular rhythm Abdomen: normal bowel sounds, soft, non tender, no organomegaly Genitourinary: normal external genitalia Skin: no rash Neurologic: streets and buildings decorator II-XII grossly normal Microbiology Date/Time Source Procedure Growth Status 03/12/20 21:02 Nasopharynx SARS-CoV-2 RdRp Gene Assay - Final Complete Laboratory Tests 03/13/20 07:40: White Blood Count 7.7, Red Blood Count 4.61, Hemoglobin 14.2, Hematocrit 42.3, Mean Corpuscular Volume 92, Mean Corpuscular Hemoglobin 30.8, Mean Corpuscular Hemoglobin Concent 33.5, Red Cell Distribution Width 12.7, Platelet Count 199, Mean Platelet Volume 8.6, Neutrophils (%) (Auto) 58.9, Lymphocytes (%) (Auto) 25.8, Monocytes (%) (Auto) 9.9, Eosinophils (%) (Auto) 4.7H, Basophils (%) (Auto) 0.7, Sodium Level 141, Potassium Level 4.1, Chloride Level 105, Carbon Dioxide Level 29, Blood Urea Nitrogen 18, Creatinine 0.6, Estimat Glomerular Filtration Rate > 60, Glucose Level 118H, Calcium Level 8.8 Current Medications Medications (Trade) Dose Ordered Sig/Alex Route PRN Reason Start Time Stop Time Status Last Admin Dose Admin Acetaminophen (Tylenol) 650 mg Q6H PRN ORAL PAIN 1-3/HEADACHE 03/09/20 20:00 04/08/20 19:59 03/10/20 16:28 Acetaminophen/ Codeine Phosphate (Tylenol #3) 1 tab Q4H PRN ORAL Moderate Pain (Pain Scale 4-6) 03/13/20 12:00 03/20/20 11:59 03/13/20 13:30 Atorvastatin Calcium (Lipitor) 40 mg BEDTIME ORAL 03/09/20 21:00 06/07/20 20:59 03/12/20 20:50 Docusate Sodium (Colace) 100 mg THREE TIMES A DAY ORAL 03/11/20 18:00 04/10/20 17:59 03/13/20 17:37 Heparin Sodium (Porcine) (Heparin 5000 units/ml) 5,000 units EVERY 12 HOURS SUBQ 03/09/20 21:00 04/23/20 20:59 03/12/20 20:53 Levothyroxine Sodium (Synthroid) 150 mcg DAILY@0630 ORAL 03/10/20 06:30 04/09/20 06:29 03/13/20 06:01 Lisinopril (PriniviL) 20 mg DAILY ORAL 03/10/20 09:00 04/09/20 08:59 03/13/20 08:59 Morphine Sulfate (Morphine Sulfate) 2 mg Q1H PRN IVP Severe Pain (Pain Scale 7-10) 03/13/20 12:00 03/20/20 11:59 Ondansetron HCl (Zofran) 4 mg Q6H PRN IVP Nausea & Vomiting 03/13/20 12:00 04/12/20 11:59 Polyethylene Glycol (Miralax) 17 gm DAILY PRN ORAL Constipation 03/11/20 14:30 04/10/20 14:29 03/12/20 06:02 Zolpidem Tartrate (Ambien) 5 mg HSPRN PRN ORAL Insomnia 03/09/20 20:00 03/16/20 19:59 Assessment/Plan Problems: (1) Syncope (2) Breast cancer (3) Pre-diabetes (4) History of cholecystectomy (5) History of partial thyroidectomy Assessment/Plan pacemaker today 2D echo reviewed: EF 55%, grade 1 diastolic dysfunction carotid artery duplex was negative keep in telemetry f/u Blood sugar. dvt prophylaxis Danette Guthrie MD Mar 13, 2020 18:55
--- NOTE | 2020-03-13 19:00 | Internal Med Progress Note ---
Subjective Date of Service: Mar 13, 2020 Physician Name Bhaskar Kraus Attending Physician Maico Dang MD Current Medications Medications (Trade) Dose Ordered Sig/Alex Route PRN Reason Start Time Stop Time Status Last Admin Dose Admin Acetaminophen (Tylenol) 650 mg Q6H PRN ORAL PAIN 1-3/HEADACHE 03/09/20 20:00 04/08/20 19:59 03/10/20 16:28 Acetaminophen/ Codeine Phosphate (Tylenol #3) 1 tab Q4H PRN ORAL Moderate Pain (Pain Scale 4-6) 03/13/20 12:00 03/20/20 11:59 03/13/20 13:30 Atorvastatin Calcium (Lipitor) 40 mg BEDTIME ORAL 03/09/20 21:00 06/07/20 20:59 03/12/20 20:50 Docusate Sodium (Colace) 100 mg THREE TIMES A DAY ORAL 03/11/20 18:00 04/10/20 17:59 03/13/20 17:37 Heparin Sodium (Porcine) (Heparin 5000 units/ml) 5,000 units EVERY 12 HOURS SUBQ 03/09/20 21:00 04/23/20 20:59 03/12/20 20:53 Levothyroxine Sodium (Synthroid) 150 mcg DAILY@0630 ORAL 03/10/20 06:30 04/09/20 06:29 03/13/20 06:01 Lisinopril (PriniviL) 20 mg DAILY ORAL 03/10/20 09:00 04/09/20 08:59 03/13/20 08:59 Morphine Sulfate (Morphine Sulfate) 2 mg Q1H PRN IVP Severe Pain (Pain Scale 7-10) 03/13/20 12:00 03/20/20 11:59 Ondansetron HCl (Zofran) 4 mg Q6H PRN IVP Nausea & Vomiting 03/13/20 12:00 04/12/20 11:59 Polyethylene Glycol (Miralax) 17 gm DAILY PRN ORAL Constipation 03/11/20 14:30 04/10/20 14:29 03/12/20 06:02 Zolpidem Tartrate (Ambien) 5 mg HSPRN PRN ORAL Insomnia 03/09/20 20:00 03/16/20 19:59 Allergies: Coded Allergies: CEPHALEXIN (Verified Allergy, Severe, "throat closes up", 2/8/19) PAROXETINE (Verified Adverse Reaction, Intermediate, confusion; restlessness, 06/05/18) ROS Limited/Unobtainable: No Constitutional: Reports: no symptoms HEENT: Reports: no symptoms Cardiovascular: Reports: no symptoms Respiratory: Reports: no symptoms Gastrointestinal/Abdominal: Reports: no symptoms Genitourinary: Reports: no symptoms Neurologic/Psychiatric: Reports: no symptoms Subjective 69 YO F admitted with syncope. Now complete 1st deg heart block. Cover for Int Zurdo-Dr Dang. Objective Last Vital Signs Date Time Temp Pulse Resp B/P (MAP) Pulse Ox O2 Delivery O2 Flow Rate FiO2 03/13/20 16:00 97.7 65 18 116/61 (79) 98 03/13/20 11:50 Nasal Cannula 3 Laboratory Tests Test 03/13/20 07:40 White Blood Count 7.7 K/UL (4.8-10.8) Red Blood Count 4.61 M/UL (4.20-5.40) Hemoglobin 14.2 G/DL (12.0-16.0) Hematocrit 42.3 % (37.0-47.0) Mean Corpuscular Volume 92 FL (80-99) Mean Corpuscular Hemoglobin 30.8 PG (27.0-31.0) Mean Corpuscular Hemoglobin Concent 33.5 G/DL (32.0-36.0) Red Cell Distribution Width 12.7 % (11.6-14.8) Platelet Count 199 K/UL (150-450) Mean Platelet Volume 8.6 FL (6.5-10.1) Neutrophils (%) (Auto) 58.9 % (45.0-75.0) Lymphocytes (%) (Auto) 25.8 % (20.0-45.0) Monocytes (%) (Auto) 9.9 % (1.0-10.0) Eosinophils (%) (Auto) 4.7 % (0.0-3.0) H Basophils (%) (Auto) 0.7 % (0.0-2.0) Sodium Level 141 MMOL/L (136-145) Potassium Level 4.1 MMOL/L (3.5-5.1) Chloride Level 105 MMOL/L (98-107) Carbon Dioxide Level 29 MMOL/L (21-32) Blood Urea Nitrogen 18 mg/dL (7-18) Creatinine 0.6 MG/DL (0.55-1.30) Estimat Glomerular Filtration Rate > 60 mL/min (>60) Glucose Level 118 MG/DL (74-106) H Calcium Level 8.8 MG/DL (8.5-10.1) Microbiology Date/Time Source Procedure Growth Status 03/12/20 21:02 Nasopharynx SARS-CoV-2 RdRp Gene Assay - Final Complete Intake and Output 03/12/20 03/13/20 19:00 07:00 Intake Total 600 ml Balance 600 ml Intake Oral 600 ml # Voids 4 Objective PHYSICAL EXAMINATION: GENERAL: The patient is awake, responsive, and in no acute distress. HEAD AND NECK: Pupils equal and reactive to light. Extraocular movements intact. Neck was supple. No JVD. LUNGS: Good air entry. No wheezing or rales. HEART: S1, S2. Regular rhythm. No murmur or gallop. ABDOMEN: Soft, nondistended, nontender, mildly obese. EXTREMITIES: No cyanosis, clubbing, or edema. NEUROLOGIC: Cranial nerves II through XII grossly intact. Motor is 5/5 in all extremities. Gait is intact. RECTAL: Refused and deferred. GENITOURINARY: Refused and deferred. PSYCHIATRIC: Mood and affect is intact. Assessment/Plan Assessment/Plan Assessment/Plan Assessment/Plan 1. Syncope 2. Blunt head trauma as a result of fall with right scalp hematoma. 3. Hypertension. 4. History of left breast cancer, status post lumpectomy, chemotherapy and radiation therapy. 5. Morbid obesity. 6. Hypothyroidism. 7. Dyslipidemia. 8. 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 Dr. Guthrie from Pulmonary/Critical Care Dr. Kennedy from Cardiology/Electrophysiology. Follow up with echocardiogram and carotid duplex. Code status: full code. DVT prophylaxis: heparin subcu. S/P dual chamber permanent pacemaker implant 03/13/20 Bhaskar Kraus MD Mar 13, 2020 19:00
[2020-03-13] MEDS: Atorvastatin 20mg tab ORAL SCH (20:32)
[2020-03-13] MEDS ORDERED: Vancomycin 1 GM in D5W 275 ML IVPB SCH (21:00)
[2020-03-14] VITALS: BP 104/56
[2020-03-14 04:00] VITALS: BP 116/67
[2020-03-14 07:12] LABS: BASOPHILS % (AUTO) 0.5 % (0.0-2.0); EOSINOPHILS % (AUTO) 4.4 % (0.0-3.0); HEMATOCRIT 43.3 % (37.0-47.0); HEMOGLOBIN 13.9 G/DL (12.0-16.0); LYMPHOCYTES % (AUTO) 17.7 % (20.0-45.0); MEAN CORPUSCULAR VOLUME 94 FL (80-99); MONOCYTES % (AUTO) 8.6 % (1.0-10.0); NEUTROPHILS % (AUTO) 68.9 % (45.0-75.0); PLATELET COUNT 183 K/UL (150-450); RED BLOOD COUNT 4.61 M/UL (4.20-5.40); RED CELL DISTRIBUTION WIDTH 12.8 % (11.6-14.8); WHITE BLOOD COUNT 9.1 K/UL (4.8-10.8)
[2020-03-14 07:39] LABS: ANION GAP 8 mmol/L (5-15); BLOOD UREA NITROGEN 13 mg/dL (7-18); CALCIUM 8.5 MG/DL (8.5-10.1); CARBON DIOXIDE 28 MMOL/L (21-32); CHLORIDE 105 MMOL/L (98-107); CREATININE 0.6 MG/DL (0.55-1.30); POTASSIUM 3.7 MMOL/L (3.5-5.1); SODIUM 141 MMOL/L (136-145)
--- NOTE | 2020-03-14 07:44 | Cardiac Electrophysiology PN ---
Assessment/Plan Assessment/Plan 1. 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 Carotid US no significant stenosis. Likely due to intermittent complete heart block DW daughter Samina at [phone] the risks and benefits of permanent pacer implantation. They agreed. S/P successful DDD [facility] PPM implant 03/13/20. CXR No Ptx Pacer interrogation this am is pending before discharge 2. Hypertension. Continue lisinopril 20 mg daily. 3. Hyperlipidemia, on Lipitor. 4. Hypothyroidism, on Synthroid. SATURNINO RN and Dr Kraus and daughter OK to DC after pacer check. FU with me in 1-2 weeks for wound check and pacer interrogation Subjective Subjective S/P successful DDD [facility] PPM implant 03/13/20. Comfortable. CXR no Ptx Objective Last 24 Hour Vital Signs Date Time Temp Pulse Resp B/P (MAP) Pulse Ox O2 Delivery O2 Flow Rate FiO2 03/14/20 04:00 98.1 64 16 116/67 (83) 96 03/14/20 04:00 64 03/14/20 04:00 98.1 96 03/14/20 00:00 98.0 100 03/14/20 00:00 98.0 73 18 104/56 (72) 100 03/14/20 00:00 65 03/13/20 21:03 97.7 03/13/20 21:00 Room Air 03/13/20 20:00 97.9 95 03/13/20 20:00 97.9 73 16 134/75 (94) 95 03/13/20 20:00 70 78 73 03/13/20 20:00 73 03/13/20 16:00 97.7 65 18 116/61 (79) 98 03/13/20 16:00 65 03/13/20 16:00 97.7 96 03/13/20 12:00 67 03/13/20 12:00 97.5 97 03/13/20 11:50 97.9 64 23 143/79 100 Nasal Cannula 3 03/13/20 11:42 60 15 129/76 100 Nasal Cannula 3 03/13/20 11:27 60 20 142/71 100 Nasal Cannula 3 03/13/20 11:12 61 15 143/77 100 Room Air 03/13/20 11:02 66 14 159/80 100 Simple Mask 6 03/13/20 10:52 63 13 151/83 100 Simple Mask 6 03/13/20 10:47 67 18 151/61 100 Simple Mask 6 03/13/20 10:45 70 18 99 03/13/20 10:44 70 16 100 03/13/20 10:42 97.4 69 18 148/87 100 Simple Mask 6 03/13/20 09:00 Room Air 03/13/20 08:59 116/69 03/13/20 08:00 98.4 95 03/13/20 08:00 98.4 62 18 117/66 (83) 97 03/13/20 08:00 62 65 64 03/13/20 08:00 60 Intake and Output 03/13/20 03/14/20 19:00 07:00 Intake Total 540 ml 300 ml Balance 540 ml 300 ml Intake Oral 240 ml 300 ml IV Total 300 ml # Voids 2 2 Laboratory Tests Test 03/14/20 06:10 White Blood Count 9.1 K/UL (4.8-10.8) Red Blood Count 4.61 M/UL (4.20-5.40) Hemoglobin 13.9 G/DL (12.0-16.0) Hematocrit 43.3 % (37.0-47.0) Mean Corpuscular Volume 94 FL (80-99) Mean Corpuscular Hemoglobin 30.2 PG (27.0-31.0) Mean Corpuscular Hemoglobin Concent 32.2 G/DL (32.0-36.0) Red Cell Distribution Width 12.8 % (11.6-14.8) Platelet Count 183 K/UL (150-450) Mean Platelet Volume 8.2 FL (6.5-10.1) Neutrophils (%) (Auto) 68.9 % (45.0-75.0) Lymphocytes (%) (Auto) 17.7 % (20.0-45.0) L Monocytes (%) (Auto) 8.6 % (1.0-10.0) Eosinophils (%) (Auto) 4.4 % (0.0-3.0) H Basophils (%) (Auto) 0.5 % (0.0-2.0) Sodium Level Pending Potassium Level Pending Chloride Level Pending Carbon Dioxide Level Pending Blood Urea Nitrogen Pending Creatinine Pending Estimat Glomerular Filtration Rate Pending Glucose Level Pending Calcium Level Pending Microbiology Date/Time Source Procedure Growth Status 03/12/20 21:02 Nasopharynx SARS-CoV-2 RdRp Gene Assay - Final Complete Objective HEAD AND NECK: Showed no JVD or carotid bruits. LUNGS: Clear. CARDIOVASCULAR: Shows regular S1 and S2 with no gallop or murmur. Pacer left subclavian with no hematoma ABDOMEN: Soft and nontender. EXTREMITIES: No pitting edema. Hollis Kennedy MD Mar 14, 2020 07:44
[2020-03-14 08:00] VITALS: BP 118/64
[2020-03-14] MEDS: Docusate 100mg cap ORAL SCH (08:54)
[2020-03-14] MEDS: Lisinopril 20mg tab ORAL SCH (08:54)
[2020-03-14] MEDS: Heparin 5000 units/ml inj SUBQ SCH (08:59)
[2020-03-14] MEDS ORDERED: SYNTHROID150 MCG ORAL (10:35)
--- NOTE | 2020-03-14 10:46 | Neurology Progress Note ---
Interim History Interim History ROS Limited/Unobtainable: No Interim History Pt doing well. No new complaint s/p pacemaker, no sob, or pain. VS stable. No neuro changes. Review of Systems Neuro Review of Systems No new weakness, numbness or tingly, or LOC. Objective Physical Exam Last Vital Signs Date Time Temp Pulse Resp B/P (MAP) Pulse Ox O2 Delivery O2 Flow Rate FiO2 03/14/20 09:03 Room Air 03/14/20 08:54 106/70 03/14/20 08:00 69 03/14/20 08:00 96.6 22 96 03/13/20 11:50 3 Laboratory Tests Test 03/14/20 06:10 White Blood Count 9.1 K/UL (4.8-10.8) Red Blood Count 4.61 M/UL (4.20-5.40) Hemoglobin 13.9 G/DL (12.0-16.0) Hematocrit 43.3 % (37.0-47.0) Mean Corpuscular Volume 94 FL (80-99) Mean Corpuscular Hemoglobin 30.2 PG (27.0-31.0) Mean Corpuscular Hemoglobin Concent 32.2 G/DL (32.0-36.0) Red Cell Distribution Width 12.8 % (11.6-14.8) Platelet Count 183 K/UL (150-450) Mean Platelet Volume 8.2 FL (6.5-10.1) Neutrophils (%) (Auto) 68.9 % (45.0-75.0) Lymphocytes (%) (Auto) 17.7 % (20.0-45.0) L Monocytes (%) (Auto) 8.6 % (1.0-10.0) Eosinophils (%) (Auto) 4.4 % (0.0-3.0) H Basophils (%) (Auto) 0.5 % (0.0-2.0) Sodium Level 141 MMOL/L (136-145) Potassium Level 3.7 MMOL/L (3.5-5.1) Chloride Level 105 MMOL/L (98-107) Carbon Dioxide Level 28 MMOL/L (21-32) Anion Gap 8 mmol/L (5-15) Blood Urea Nitrogen 13 mg/dL (7-18) Creatinine 0.6 MG/DL (0.55-1.30) Estimat Glomerular Filtration Rate > 60 mL/min (>60) Glucose Level 107 MG/DL (74-106) H Calcium Level 8.5 MG/DL (8.5-10.1) EENT: benign Neurologic Exam Mental Status: awake, alert, oriented x4, normal cognition, good mathematical skills, normal recent memory, normal remote memory, preserved visuospatial fu nction Speech: normal speech, no dysarthia Language: normal language, no aphasia Cranial Nerve II: fundus normal - was not assessed , visual casanova, no papilledema Cranial Nerves III, IV, : PERRLA, EOMI, pupils Cranial Nerve V: normal facial sensations, temporales function normal, masseters function normal, pterygoids function normal Cranial Nerve VII: no facial asymmetry, normal facial expressions Cranial Nerve VIII: normal hearing, no nystagmus Cranial Nerve IX: normal palate elevation, gag response Cranial Nerve X: no voice hoarseness Cranial Nerve XI: SCM symmetric, trapezii function normal Cranial Nerve XII: tongue midline, no tongue atrophy/fasciculations Motor System: normal muscle tone, strength 5/5, no involuntary movement, no muscle wasting Sensory: normal pinprick, normal light touch, normal position sense, normal graphesthesia Coordination: normal finger to nose bilaterally, normal heel to murillo bilaterally, negative Romberg test Deep Tendon Reflexes: 1+ bicep (L), 1+ bicep (R), 1+ brachioradialis (L), 1+ brachioradialis (R), 1+ knee (L), 1+ knee (R), 1+ ankle (L), 1+ ankle (R) Reflexes: mute plantar (L), mute plantar (R) Stance: normal Impression/Recommendations Problems: (1) History of partial thyroidectomy (2) History of cholecystectomy (3) Grade I diastolic dysfunction (4) Pre-diabetes (5) Breast cancer (6) Syncope (7) Posterior subcapsular age-related cataract of right eye (8) Mild TBI (9) OTHER SPECIFIED HEART BLOCK Recommendations Patient's syncope could be due to cardiac arrhythmia, versus possible TIA. Unlikely to be a seizure since there is no post ictal confusion, urinary incontinence or tongue biting. Patient's ultrasound of the neck showed stenosis in the left internal carotid however this is not likely the cause of syncope, since circulation of the right internal carotid is good, and the vertebral arteries is patent. Dehydration is also on the ddx. Syncope was likely 2/2 cardiac reasons. recs MRI brain w/out contrast -would also get MRA head and neck cardiology consult to rule out arrhythmia tele, holter or ziopatch .EEG as outpt atorvastatin 40mg Vascular consult as outpt for IC stenosis Hunter Kirby M.D. Mar 14, 2020 10:46
[2020-03-14 12:00] VITALS: BP 116/61
--- NOTE | 2020-03-14 12:45 | Pulmonology Progress Note ---
Subjective ROS Limited/Unobtainable: No Constitutional: Reports: no symptoms HEENT: Repors: no symptoms Respiratory: Reports: no symptoms Allergies: Coded Allergies: CEPHALEXIN (Verified Allergy, Severe, "throat closes up", 06/05/18) PAROXETINE (Verified Adverse Reaction, Intermediate, confusion; restlessness, 06/05/18) All Systems: reviewed and negative except above Objective Last 24 Hour Vital Signs Date Time Temp Pulse Resp B/P (MAP) Pulse Ox O2 Delivery O2 Flow Rate FiO2 03/14/20 12:00 96.6 66 18 116/61 (79) 98 03/14/20 12:00 64 03/14/20 09:03 Room Air 03/14/20 08:54 106/70 03/14/20 08:00 69 03/14/20 08:00 96.6 75 22 118/64 (82) 96 03/14/20 08:00 64 72 67 03/14/20 04:00 98.1 64 16 116/67 (83) 96 03/14/20 04:00 64 03/14/20 04:00 98.1 96 03/14/20 00:00 98.0 100 03/14/20 00:00 98.0 73 18 104/56 (72) 100 03/14/20 00:00 65 03/13/20 21:03 97.7 03/13/20 21:00 Room Air 03/13/20 20:00 97.9 95 03/13/20 20:00 97.9 73 16 134/75 (94) 95 03/13/20 20:00 70 78 73 03/13/20 20:00 73 03/13/20 16:00 97.7 65 18 116/61 (79) 98 03/13/20 16:00 65 03/13/20 16:00 97.7 96 Intake and Output 03/13/20 03/14/20 19:00 07:00 Intake Total 540 ml 300 ml Balance 540 ml 300 ml Intake Oral 240 ml 300 ml IV Total 300 ml # Voids 2 2 Objective for pacemaker insertion General Appearance: WD/WN, no acute distress HEENT: normocephalic Respiratory: chest wall non-tender, lungs clear, normal breath sounds Cardiovascular: normal peripheral pulses, normal rate, regular rhythm Abdomen: normal bowel sounds, soft, non tender, no organomegaly Genitourinary: normal external genitalia Skin: no rash Neurologic: manager e commerce II-XII grossly normal Lymphatic: no neck adenopathy Microbiology Date/Time Source Procedure Growth Status 03/12/20 21:02 Nasopharynx SARS-CoV-2 RdRp Gene Assay - Final Complete Laboratory Tests 03/14/20 06:10: White Blood Count 9.1, Red Blood Count 4.61, Hemoglobin 13.9, Hematocrit 43.3, Mean Corpuscular Volume 94, Mean Corpuscular Hemoglobin 30.2, Mean Corpuscular Hemoglobin Concent 32.2, Red Cell Distribution Width 12.8, Platelet Count 183, Mean Platelet Volume 8.2, Neutrophils (%) (Auto) 68.9, Lymphocytes (%) (Auto) 17.7L, Monocytes (%) (Auto) 8.6, Eosinophils (%) (Auto) 4.4H, Basophils (%) (Auto) 0.5, Sodium Level 141, Potassium Level 3.7, Chloride Level 105, Carbon Dioxide Level 28, Anion Gap 8, Blood Urea Nitrogen 13, Creatinine 0.6, Estimat Glomerular Filtration Rate > 60, Glucose Level 107H, Calcium Level 8.5 Current Medications Medications (Trade) Dose Ordered Sig/Alex Route PRN Reason Start Time Stop Time Status Last Admin Dose Admin Acetaminophen (Tylenol) 650 mg Q6H PRN ORAL PAIN 1-3/HEADACHE 03/09/20 20:00 04/08/20 19:59 03/10/20 16:28 Acetaminophen/ Codeine Phosphate (Tylenol #3) 1 tab Q4H PRN ORAL Moderate Pain (Pain Scale 4-6) 03/13/20 12:00 03/20/20 11:59 03/13/20 20:33 Atorvastatin Calcium (Lipitor) 40 mg BEDTIME ORAL 03/09/20 21:00 06/07/20 20:59 03/13/20 20:32 Docusate Sodium (Colace) 100 mg THREE TIMES A DAY ORAL 03/11/20 18:00 04/10/20 17:59 03/14/20 08:54 Heparin Sodium (Porcine) (Heparin 5000 units/ml) 5,000 units EVERY 12 HOURS SUBQ 03/09/20 21:00 04/23/20 20:59 03/14/20 08:59 Levothyroxine Sodium (Synthroid) 150 mcg DAILY@0630 ORAL 03/10/20 06:30 04/09/20 06:29 03/14/20 05:47 Lisinopril (PriniviL) 20 mg DAILY ORAL 03/10/20 09:00 04/09/20 08:59 03/14/20 08:54 Morphine Sulfate (Morphine Sulfate) 2 mg Q1H PRN IVP Severe Pain (Pain Scale 7-10) 03/13/20 12:00 03/20/20 11:59 Ondansetron HCl (Zofran) 4 mg Q6H PRN IVP Nausea & Vomiting 03/13/20 12:00 04/12/20 11:59 Polyethylene Glycol (Miralax) 17 gm DAILY PRN ORAL Constipation 03/11/20 14:30 04/10/20 14:29 03/12/20 06:02 Zolpidem Tartrate (Ambien) 5 mg HSPRN PRN ORAL Insomnia 03/09/20 20:00 03/16/20 19:59 Assessment/Plan Problems: (1) Syncope (2) Breast cancer (3) Pre-diabetes (4) History of cholecystectomy (5) History of partial thyroidectomy Assessment/Plan no complains all reviewed. pacemaker yesterday 2D echo reviewed: EF 55%, grade 1 diastolic dysfunction carotid artery duplex was negative keep in telemetry f/u Blood sugar. dvt prophylaxis Danette Guthrie MD Mar 14, 2020 12:45
[2020-03-14] MEDS ORDERED: LIPITOR20 MG ORAL (12:47)
[2020-03-14] MEDS ORDERED: Vancomycin 1.25gm Premix q24h IVPB SCH (14:00)
--- NOTE | 2020-03-15 13:06 | Diagnostic Imaging Report ---
CLINICAL HISTORY: Chest pain. Pacemaker placement COMPARISON: None FINDINGS: Fluoroscopy independent procedure performed for reported pacemaker placement. 140.8 seconds of fluoroscopy time utilized by the ordering physician (Marcia). Total cumulative dose is 20.75 mGy. Total of 3 spot images are obtained. IMPRESSION: FLUOROSCOPY GUIDED PROCEDURE. PLEASE SEE PROCEDURE/OPERATIVE REPORT.
--- NOTE | 2020-03-15 14:10 | Discharge Summary ---
Discharge Summary Discharge Summary _ DATE OF ADMISSION: 03/09/2020 DATE OF DISCHARGE:03/14/2020 DISCHARGED BY: Dr. Dang REASON FOR ADMISSION: 69 years old female with past medical history significant for hypertension, dyslipidemia, right breast cancer, status post lumpectomy, followed by chemotherapy and radiation 2010, history of macular degeneration , status post monthly injection, cholecystectomy, prediabetes, partial thyroidectomy due to benign lump, presently on Synthroid, presented to [place] emergency department after syncopal episode. Episode was acute,occurred in the morning . She felt lightheaded she hit the right side of her head . She was out for few seconds She reported right-sided headache with nausea, but no vomiting. No chest pain or shortness of breath. Patient was transferred to [facility] for further evaluation and management. CONSULTANTS: online user experience strategist Dr. Juárez neurologist Dr Kirby pulmonary Dr. Guthrie HOSPITAL COURSE: Patient admitted to monitored floor. Cotton Weigher, neurologist and inspector watch parts followed. Echocardiogram demonstrated preserved ejection fraction 55 to 60%. No evidence of wall motion abnormality. Right ventricular systolic pressure of 30. Carotid duplex showed degree of stenosis 50 to 69% on the left and less than 50% on the right. Serial troponin were negative. EKG revealed no acute ischemic changes. Patient was ruled out for acute myocardial infarction. Lipid panel revealed elevated LDL 121. Patient started on statin. TSH low 0.155 , T4 slightly up 1.59. Dose of Synthroid was uptitrated. Orthostatic vital signs revealed no evidence of acute orthostatic changes. 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 Syncope was likely due to intermittent complete heart block. Patient subsequently undergone permanent pacemaker implantation on 03/13/2020. Chest x-ray post implantation showed no pneumothorax. Pacer interrogation was done. Patient to follow-up with online user experience strategist in 1 to 2 weeks for wound check and pacer interrogation. Per neurologist syncope was due to cardiac arrhythmia , unlikely seizure disorder , since there was no postictal confusion , urinary incontinence or tongue biting. Carotid ultrasound showed some stenosis in the left internal carotid , however not likely the cause of syncope. The circulation of the right internal carotid was good , and vertebral arteries were patent. Neurologist recommended MRI of the brain as well as MRA of the head and neck as well as EEG as outpatient. Vascular consult as outpatient for internal carotid stenosis on the left was recommended as well. Blood sugar was closely monitored . No concentrated sweets diet provided. DVT prophylaxis provided. Pain management was addressed as needed. Patient clinically stabilized and was ready for discharge home with home health services. 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 DISCHARGE INSTRUCTIONS: Patient was discharged home with home health services. Follow up with primary care provider in one week. I have been assigned to dictate discharge summary for this account. I was not involved in the patient's management. Cheyanne Farmer NP Mar 15, 2020 14:10
== END 2020-03-14 13:30 | disposition home or self-care (01) | DRG 244 ==
LOC: 2E 16:07
PROC: 02H63JZ Insertion of Pacemaker Lead into Right Atrium, Percutaneous Approach (ICD-10-PCS; principal; 2020-03-13 09:30)
PROC: 0JH606Z Insertion of Pacemaker, Dual Chamber into Chest Subcutaneous Tissue and Fascia, Open Approach (ICD-10-PCS; principal; 2020-03-13 09:30)
PROC: 02HK3JZ Insertion of Pacemaker Lead into Right Ventricle, Percutaneous Approach (ICD-10-PCS; principal; 2020-03-13 09:30)
DX: I44.2 Atrioventricular block, complete (principal); I45.3 Trifascicular block; I10 Essential (primary) hypertension; S00.03XA Contusion of scalp, initial encounter; E66.01 Morbid (severe) obesity due to excess calories; W19.XXXA Unspecified fall, initial encounter; Z85.3 Personal history of malignant neoplasm of breast; E78.5 Hyperlipidemia, unspecified; Z92.3 Personal history of irradiation; Z92.21 Personal history of antineoplastic chemotherapy; Z90.49 Acquired absence of other specified parts of digestive tract; E86.0 Dehydration; H35.30 Unspecified macular degeneration; Z88.1 Allergy status to other antibiotic agents; Z88.8 Allergy status to other drugs, medicaments and biological substances; E89.0 Postprocedural hypothyroidism; R73.03 Prediabetes; Z80.3 Family history of malignant neoplasm of breast
CPT/HCPCS: 36415; 71045; 76000; 80048; 80053; 80061; 82248; 83735; 84100; 84439; 84443; 84481; 84484; 85025; 93005; 93306; 93880; 94003; 94150; J2250; U0002